=== PATIENT | female | born 1955 | race Caucasian/White ===

== ENCOUNTER 2016-12-09 23:38 | Emergency (ER) | payer OTHER ==
[2016-12-09] MEDS ORDERED: TORAdol 30 mg Injection IM ONE (23:57)
[2016-12-09] MEDS ORDERED: Vistaril 50 MG/ML IM ONE (23:58)
[2016-12-10] MEDS ORDERED: TORAdol 30 mg Injection ONE (00:01)
[2016-12-10] MEDS ORDERED: Vistaril 50 MG/ML IM ONE (00:01)
--- NOTE | 2016-12-10 00:05 | ERPHSYRPT ---
- History of Present Illness Time Seen by Provider: 12/09/16 23:39 Source: patient, family Patient Subjective Stated Complaint: PT STTES SHE HAD CARPAL TUNNEL SURGERY 1 WEEK AND SHES HAD SWELLING AND NUMBNESS IN HER FINGERS Triage Nursing Assessment: PT ALERT AND ORIENTED. ANSWERS QUESTIONS APPROP. PT AMBULATORY WITH STEADY GAIT NOTED. RESPIRATIONS NONLABORED WITH LUNGS CTA. SKIN PINK WARM AND DRY. INCISION WITH SUTURES NOTED TO RT HAND, RT ELBOW. INCISION WITH STERI STRIPS TO RT ANTERIOR NECK. SWELLING NOTED TO RT HAND AND FINGERS. CAP REFILL WNL. RT HAND WARM. RADIAL PULSE STRONG. Physician History: CC: right hand pain Hx: 60 y/o patient had anterior cervical fusion, right ulnar release at elbow, and right carpal tunnel release per Dr Lyle in [place] 1 1/2 weeks ago. All week she has had more pain in right hand. Started with ring finger, then to middle finger, then to index finger. Some swelling in fingers. Not cold or blue. No other arm swelling. She has used ice and elevation without relief. She last used norco 2-3 hours ago. Has not been able to sleep. Corresponded with doctor's office thru email this week. No fever or chills. No unusual numbness or weakness. Allergies/Adverse Reactions: Sulfa (Sulfonamide Antibiotics) Allergy (Unknown, Verified 12/09/16 23:54) Home Medications: Citalopram Hydrobromide [Celexa] 20 mg PO DAILY 12/09/16 [History] Diazepam 5 mg [Valium 5 MG] 5 mg PO Q6HPRN PRN 12/09/16 [History] Hydrocodone Bit/Acetaminophen [[place] 10-325 Tablet] 1 each PO Q4-6HPRN PRN 12/09 [History] Omeprazole 20 MG [Prilosec 20 mg] 20 mg PO DAILY 12/09/16 [History] Hx Tetanus, Diphtheria Vaccination/Date Given: No Hx Influenza Vaccination/Date Given: Yes Hx Pneumococcal Vaccination/Date Given: No Immunizations Up to Date: Yes - Review of Systems Constitutional: No Fever, No Chills Eyes: No Symptoms Respiratory: No Dyspnea Cardiac: No Chest Pain Abdominal/Gastrointestinal: No Abdominal Pain Musculoskeletal: No Injury Neurological: No Focal Weakness, No Headache, No Parasthesia - Past Medical History Pertinent Past Medical History: Yes Neurological History: Migraines ENT History: No Pertinent History Cardiac History: No Pertinent History Respiratory History: No Pertinent History Endocrine Medical History: No Pertinent History Musculoskeletal History: Degenerative Disk Disease GI Medical History: Hernia, Other History: No Pertinent History Psycho-Social History: Anxiety Female Reproductive Disorders: No Pertinent History Other Medical History: SEASONAL ALLERGIES. GASTRITIS. HIATAL HERNIA - Past Surgical History Past Surgical History: Yes Neuro Surgical History: No Pertinent History Cardiac: No Pertinent History Respiratory: No Pertinent History Gastrointestinal: No Pertinent History Genitourinary: No Pertinent History Musculoskeletal: No Pertinent History Female Surgical History: Dilation & Curettage, Tubal Ligation Other Surgical History: TONSILECTOMY. RECENT CARPAL TUNNEL, CUBITAL TUNNEL, AND ACF OF C6-6 - Social History Smoking Status: Current every day smoker How long have you smoked: 30 yr Exposure to second hand smoke: No Drug Use: none Patient Lives Alone: No - Female History Hx Last Menstrual Period: POST Hx Now: No - Nursing Vital Signs Nursing Vital Signs: Initial Vital Signs Temperature 98.7 F Temperature Source Oral Pulse Rate 105 Respiratory Rate 20 Blood Pressure [Left Arm] 128/92 Pain Intensity 9 - Physical Exam General Appearance: alert Eyes, Ears, Nose, Throat Exam: moist mucous membranes Neck Exam: other (right anterior neck steri strips, no swelling) Cardiovascular/Respiratory Exam: normal breath sounds, regular rate/rhythm Neuro/Tendon Exam: normal sensation, normal motor functions Mental Status Exam: alert, oriented x 3, cooperative Skin Exam: warm, dry SpO2 Interpretation: normal SpO2: 95 Oxygen Delivery: Room Air Comments: No edema or tenderness in right upper arm or forearm area. Right elbow area incision c,d,i. The right carpal tunnel incision is intact without drng or erythema. There is some scab. The fingers of the right hand have mild swelling. Excellent cap refill with equal pulse ox of 95% on each finger with good waveform. Good radial and ulnar pulses. ROM intact. The hand is not cool or discolored. - Course Nursing assessment & vital signs reviewed: Yes Ordered Tests: Medication Summary Generic Name Dose Route Start Last Admin Trade Name Freq PRN Reason Stop Dose Admin Hydroxyzine HCl 50 mg 12/09/16 23:58 Vistaril 50 Mg/Ml IM 12/09/16 23:59 STAT ONE Ketorolac Tromethamine 60 mg 12/09/16 23:57 Toradol 30 Mg Injection IM 12/09/16 23:58 STAT ONE - Progress Progress Note: 12/10/16 00:05 There is no sign of infection or arterial or venous thrombotic event. Advised continue elevation, limit ice, injection or vistaril and toradol, and to contact surgeon in AM for visit Tuesday. Will release with instr. Counseled pt/family regarding: diagnosis, need for follow-up - Departure Time of Disposition: 00:06 Departure Disposition: Home Clinical Impression: right hand pain post carpal tunnel OR Condition: Stable Critical Care Time: No Referrals: OZZY CARBAJAL MD [Primary Care Provider] - Instructions: Carpal Tunnel Release Additional Instructions: Elevate hand on pillows. Limit ice to just 15 minutes an hour or less. No driving tonite. Contact Dr Jarvis this AM to be seen Tuesday for check. Return for problems or concerns.
[2016-12-10 00:31] VITALS: BP 135/83; PULSE 89; O2SAT 98
== END 2016-12-10 00:31 | disposition home or self-care (01) ==
LOC: ED 23:38
DX: M79.641 Pain in right hand (principal); Z98.890 Other specified postprocedural states
CPT/HCPCS: 96372; 99284; J1885; J3410

== ENCOUNTER 2019-01-24 16:14 | Emergency (ER) | payer OTHER ==
--- NOTE | 2019-01-24 16:16 | ERPHSYRPT ---
- History of Present Illness Time Seen by Provider: 01/24/19 16:16 Historian: patient Exam Limitations: no limitations Physician History: 63 y/o white female presents with 2 month h/o intermittent cp. pt has been dx with gerd. was placed on protonix and prilosec. cp continues intermittently. cp in substernal, burning and nonradiating. pt underwent a stress test recently and was ok per pt report. Timing/Duration: week(s) (8) Activities at Onset: none Quality: burning, sharpness Location: substernal Chest Pain Radiation: no radiation Severity of Pain-Max: moderate Severity of Pain-Current: mild Modifying Factors: Improves With: antacids Associated Symptoms: heartburn, No nausea, No vomiting, No palpitations, No abdominal pain, No weakness Prior Chest Pain/Cardiac Workup: stress test Nitro Today/Relief: no nitro taken today Aspirin Treatment Today: no aspirin today Allergies/Adverse Reactions: Sulfa (Sulfonamide Antibiotics) Allergy (Unknown, Verified 01/24/19 16:30) Home Medications: Citalopram Hydrobromide [Celexa] 10 mg PO DAILY 12/09/16 [History] Hydrocodone Bit/Acetaminophen [[place] 10-325 Tablet] 1 each PO Q4-6HPRN PRN 12/09 [History] Amitriptyline HCl 25 mg PO HS 01/24/19 [History] Mirabegron [Myrbetriq] 50 mg PO DAILY 01/24/19 [History] Montelukast Sodium 10 mg [Singulair 10 MG] 10 mg PO DAILY 01/24/19 [History] PANTOPRAZOLE 40 mg Tablet [Protonix 40MG Tablet] 40 mg PO QAM 01/24/19 [ History] Trazodone HCl [Desyrel] 100 mg PO HS 01/24/19 [History] Hx Tetanus, Diphtheria Vaccination/Date Given: No Hx Influenza Vaccination/Date Given: Yes Hx Pneumococcal Vaccination/Date Given: No - Review of Systems Constitutional: No Symptoms Eyes: No Symptoms Ears, Nose, & Throat: No Symptoms Respiratory: No Symptoms Cardiac: Chest Pain, No Palpitations, No Syncope Abdominal/Gastrointestinal: No Symptoms, No Abdominal Pain, No Nausea, No Vomiting, No Diarrhea Genitourinary Symptoms: No Symptoms Musculoskeletal: No Symptoms Skin: No Symptoms Neurological: No Symptoms Psychological: No Symptoms Endocrine: No Symptoms Hematologic/Lymphatic: No Symptoms Immunological/Allergic: No Symptoms All Other Systems: Reviewed and Negative - Past Medical History Pertinent Past Medical History: Yes Neurological History: Migraines ENT History: No Pertinent History Cardiac History: No Pertinent History Respiratory History: No Pertinent History Endocrine Medical History: No Pertinent History Musculoskeletal History: Degenerative Disk Disease GI Medical History: Hernia, Other History: No Pertinent History Psycho-Social History: Anxiety Female Reproductive Disorders: No Pertinent History Other Medical History: SEASONAL ALLERGIES. GASTRITIS. HIATAL HERNIA - Past Surgical History Past Surgical History: Yes Neuro Surgical History: No Pertinent History Cardiac: No Pertinent History Respiratory: No Pertinent History Gastrointestinal: No Pertinent History Genitourinary: No Pertinent History Musculoskeletal: No Pertinent History Female Surgical History: Dilation & Curettage, Tubal Ligation Other Surgical History: TONSILECTOMY. RECENT CARPAL TUNNEL, CUBITAL TUNNEL, AND ACF OF C6-6 - Social History Smoking Status: Current every day smoker How long have you smoked: 30 yr Exposure to second hand smoke: No Drug Use: none Patient Lives Alone: No - Nursing Vital Signs Nursing Vital Signs: Initial Vital Signs Temperature 98.5 F 01/24/19 16:15 Pulse Rate 79 01/24/19 16:15 Blood Pressure 132/81 01/24/19 16:15 O2 Sat by Pulse Oximetry 94 L 01/24/19 16:15 Pain Scale Pain Intensity 7 - Physical Exam General Appearance: mild distress, alert, anxiety Eye Exam: PERRL/EOMI Ears, Nose, Throat Exam: normal ENT inspection, moist mucous membranes Neck Exam: normal inspection, non-tender, supple, full range of motion Respiratory Exam: normal breath sounds, chest tenderness, lungs clear, airway intact, No respiratory distress Cardiovascular Exam: regular rate/rhythm, normal heart sounds, normal peripheral pulses Gastrointestinal/Abdomen Exam: soft, normal bowel sounds, No tenderness, No guarding, No rebound Pelvic Exam: not done Rectal Exam: not done Extremity Exam: normal inspection, normal range of motion, No pelvis stable Neurologic Exam: alert, oriented x 3, cooperative, 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 Skin Exam: normal color, warm, dry Lymphatic Exam: No adenopathy SpO2 Interpretation: normal O2 Delivery: Room Air - Course Nursing assessment & vital signs reviewed: Yes EKG Interpreted by Me: RATE (81), Sinus Rhythm, NORMAL AXIS, NORMAL INTERVALS, NORMAL QRS, NORMAL ST-T, Other (no changes from comparison ekg dated 05/25/12) Ordered Tests: Active Orders 24 hr Category Date Time Status Administrative Technician STAT Care 01/24/19 16:45 Active EKG-ER Only STAT Care 01/24/19 16:44 Active IV Insertion STAT Care 01/24/19 16:44 Active CHEST 1 VIEW (PORTABLE) Stat Exams 01/24/19 16:44 Completed CBC W DIFF Stat Lab 01/24/19 16:25 Completed CMP Stat Lab 01/24/19 16:25 Completed D-DIMER QUANTITATION Stat Lab 01/24/19 16:25 Completed NT PRO BNP Stat Lab 01/24/19 16:25 Completed TROPONIN Q3H Lab 01/24/19 16:25 Completed TROPONIN Q3H Lab 01/24/19 19:45 Ordered TROPONIN Q3H Lab 01/24/19 22:45 Ordered TROPONIN Q3H Lab 01/25/19 01:45 Ordered TROPONIN Q3H Lab 01/25/19 04:45 Ordered Medication Summary Generic Name Dose Route Start Last Admin Trade Name Freq PRN Reason Stop Dose Admin Sodium Chloride 1,000 mls @ 100 mls/hr 01/24/19 16:45 01/24/19 16:58 Sodium Chloride 0.9% 1000 Ml IV 02/23/19 16:44 100 mls/hr .Q10H [place] Administration Discontinued Medications Generic Name Dose Route Start Last Admin Trade Name Freq PRN Reason Stop Dose Admin Al Hydrox/Mg Hydrox/Simethicone Confirm 01/24/19 16:54 Maalox Es 30 Ml Unit Dose Administered 01/24/19 16:55 Dose 30 ml .ROUTE .STK-MED ONE Aspirin 324 mg 01/24/19 16:44 01/24/19 16:56 Baby Aspirin 81 Mg Chew PO 01/24/19 16:45 324 mg STAT ONE Administration Aspirin Confirm 01/24/19 16:53 Baby Aspirin 81 Mg Chew Administered 01/24/19 16:54 Dose 324 mg .ROUTE .STK-MED ONE Lidocaine HCl Confirm 01/24/19 16:54 Xylocaine Hcl Viscous * Administered 01/24/19 16:55 Dose 1 ml .ROUTE .STK-MED ONE Magnesium Hydroxide 45 ml 01/24/19 16:45 01/24/19 16:58 Gi Cocktail 45 Ml (Maalox/Lidocaine) PO 01/24/19 16:46 45 ml STAT ONE Administration Morphine Sulfate 2 mg 01/24/19 16:44 01/24/19 16:58 Morphine Sulfate 2 Mg Inj IV 01/24/19 16:45 2 mg STAT ONE Administration Morphine Sulfate Confirm 01/24/19 16:54 Morphine Sulfate 2 Mg Inj Administered 01/24/19 16:55 Dose 2 mg .ROUTE .STK-MED ONE Promethazine HCl 12.5 mg 01/24/19 17:04 01/24/19 17:05 Phenergan 25 Mg Inj IM 01/24/19 17:05 12.5 mg STAT ONE Administration Promethazine HCl Confirm 01/24/19 17:04 Phenergan 25 Mg Inj Administered 01/24/19 17:05 Dose 25 mg .ROUTE .STK-MED ONE Lab/Rad Data: Laboratory Result Diagrams 01/24/19 16:25 01/24/19 16:25 Laboratory Results 01/24/19 01/24/19 01/24/19 Range/Units 16:25 16:25 16:25 WBC (4.0-10.5) K/mm3 RBC (4.1-5.4) M/mm3 Hgb (12.0-16.0) gm/dl Hct (35-47) % MCV (78-100) fl MCH (26-32) pg MCHC (32-36) g/dl RDW (11.5-14.0) % Plt Count (150-450) K/mm3 MPV (6-9.5) fl Gran % (36.0-66.0) % Eos # (Auto) (0-0.5) Absolute Lymphs (auto) (1.0-4.6) Absolute Monos (auto) (0.0-1.3) Lymphocytes % (24.0-44.0) % Monocytes % (0.0-12.0) % Eosinophils % (0.00-5.0) % Basophils % (0.0-0.4) % Absolute Granulocytes (1.4-6.9) Basophils # (0-0.4) D-Dimer 302 (215-500) ng/mL Sodium 141 (137-145) mmol/L Potassium 3.8 (3.5-5.1) mmol/L Chloride 105 (98-107) mmol/L Carbon Dioxide 27 (22-30) mmol/L Anion Gap 12.7 (5-15) MEQ/L BUN 17 (7-17) mg/dL Creatinine 0.82 (0.52-1.04) mg/dL Estimated GFR > 60.0 ML/MIN Glucose 108 H (74-106) mg/dL Calcium 9.1 (8.4-10.2) mg/dL Total Bilirubin 0.30 (0.2-1.3) mg/dL AST 20 (14-36) U/L ALT 21 (0-35) U/L Alkaline Phosphatase 69 (38-126) U/L Troponin I < 0.012 (0.000-0.034) ng/mL NT-Pro-B Natriuret Pep 105 (0-900) pg/mL Serum Total Protein 7.3 (6.3-8.2) g/dL Albumin 4.1 (3.5-5.0) g/dL 01/24/19 Range/Units 16:25 WBC 6.2 (4.0-10.5) K/mm3 RBC 4.86 (4.1-5.4) M/mm3 Hgb 14.8 (12.0-16.0) gm/dl Hct 44.2 (35-47) % MCV 90.9 (78-100) fl MCH 30.5 (26-32) pg MCHC 33.5 (32-36) g/dl RDW 13.2 (11.5-14.0) % Plt Count 254 (150-450) K/mm3 MPV 10.8 H (6-9.5) fl Gran % 48.0 (36.0-66.0) % Eos # (Auto) 0.11 (0-0.5) Absolute Lymphs (auto) 2.61 (1.0-4.6) Absolute Monos (auto) 0.47 (0.0-1.3) Lymphocytes % 42.1 (24.0-44.0) % Monocytes % 7.6 (0.0-12.0) % Eosinophils % 1.8 (0.00-5.0) % Basophils % 0.5 (0.0-0.4) % Absolute Granulocytes 2.98 (1.4-6.9) Basophils # 0.03 (0-0.4) D-Dimer (215-500) ng/mL Sodium (137-145) mmol/L Potassium (3.5-5.1) mmol/L Chloride (98-107) mmol/L Carbon Dioxide (22-30) mmol/L Anion Gap (5-15) MEQ/L BUN (7-17) mg/dL Creatinine (0.52-1.04) mg/dL Estimated GFR ML/MIN Glucose (74-106) mg/dL Calcium (8.4-10.2) mg/dL Total Bilirubin (0.2-1.3) mg/dL AST (14-36) U/L ALT (0-35) U/L Alkaline Phosphatase (38-126) U/L Troponin I (0.000-0.034) ng/mL NT-Pro-B Natriuret Pep (0-900) pg/mL Serum Total Protein (6.3-8.2) g/dL Albumin (3.5-5.0) g/dL - Progress Progress: improved Air Movement: good Blood Culture(s) Obtained: No Antibiotics given: No Counseled pt/family regarding: lab results, diagnosis, need for follow-up, rad results - Departure Departure Disposition: Home Clinical Impression: Chest pain Condition: Stable Critical Care Time: No Referrals: OZZY CARBAJAL MD [Primary Care Provider] - Additional Instructions: take all your medications as prescribed. follow up with primary doctor tomorrow for further management
[2019-01-24 16:30] VITALS: O2SAT 94
[2019-01-24 16:51] LABS: BASOPHIL % 0.5 % (0.0-0.4); Basophil (Absolute #) 0.03 (0-0.4); Eosinophil % 1.8 % (0.00-5.0); Eosinophil (Absolute #) 0.11 (0-0.5); Granulocyte Absolute (ANC) 2.98 (1.4-6.9); Hematocrit 44.2 % (35-47); Hemoglobin 14.8 gm/dl (12.0-16.0); Lymphocyte (Absolute #) 2.61 (1.0-4.6); Lymphocytes % 42.1 % (24.0-44.0); Mean Cell Volume 90.9 fl (78-100); Mean Corpuscular Hemoglobin 30.5 pg (26-32); Mean Corpuscular Hgb Concent. 33.5 g/dl (32-36); Mean Platelet Volume 10.8 fl (6-9.5); Monocyte (Absolute #) 0.47 (0.0-1.3); Monocytes % 7.6 % (0.0-12.0); Platelet Count 254 K/mm3 (150-450); Red Blood Count 4.86 M/mm3 (4.1-5.4); Red Cell Distribution Width 13.2 % (11.5-14.0); White Blood Count 6.2 K/mm3 (4.0-10.5)
[2019-01-24] MEDS ORDERED: BABY ASPIRIN 81 MG CHEW ONE (16:53)
[2019-01-24] MEDS ORDERED: Sodium Chloride 0.9% 1000 ML 1,000 ML ONE (16:54)
[2019-01-24] MEDS ORDERED: MAALOX ES 30 ML UNIT DOSE ONE (16:54)
[2019-01-24] MEDS ORDERED: MORPHINE SULFATE 2 MG INJ ONE (16:54)
[2019-01-24] MEDS ORDERED: XYLOCAINE HCl Viscous ONE (16:54)
[2019-01-24] MEDS: BABY ASPIRIN 81 MG CHEW PO ONE (16:56)
[2019-01-24] MEDS: Sodium Chloride 0.9% 1000 ML 1,000 ML IV SCH (16:58)
[2019-01-24] MEDS: GI COCKTAIL 45 ML (Maalox/Lidocaine) PO ONE (16:58)
[2019-01-24] MEDS: MORPHINE SULFATE 2 MG INJ IV ONE (16:58)
--- NOTE | 2019-01-24 17:03 | XRAY ---
Indication: Chest pain. Comparison: August 16, 2016. Portable chest again demonstrates normal heart and lungs. Bony thorax intact with new lower cervical fusion hardware.
[2019-01-24] MEDS ORDERED: Phenergan 25 MG INJ ONE (17:04)
[2019-01-24] MEDS: Phenergan 25 MG INJ IM ONE (17:05)
[2019-01-24 17:06] LABS: ALBUMIN 4.1 g/dL (3.5-5.0); ALKALINE PHOSPHATASE 69 U/L (38-126); ANION GAP 12.7 MEQ/L (5-15); BLOOD UREA NITROGEN 17 mg/dL (7-17); CHLORIDE 105 mmol/L (98-107); Calcium 9.1 mg/dL (8.4-10.2); Carbon Dioxide 27 mmol/L (22-30); Creatinine 1 0.82 mg/dL (0.52-1.04); Glucose 108 mg/dL (74-106); NT PRO BNP 105 pg/mL (0-900); Potassium 3.8 mmol/L (3.5-5.1); SGOT/AST 20 U/L (14-36); SGPT/ALT 21 U/L (0-35); SODIUM 141 mmol/L (137-145); Total Protein 7.3 g/dL (6.3-8.2)
[2019-01-24 17:54] VITALS: PULSE 77
[2019-01-24] MEDS ORDERED: MORPHINE SULFATE 4 MG INJ ONE (18:07)
[2019-01-24] MEDS: MORPHINE SULFATE 4 MG INJ IV ONE (18:12)
[2019-01-24 18:41] VITALS: BP 122/65
== END 2019-01-24 18:50 | disposition home or self-care (01) ==
LOC: ED 16:14
DX: R07.9 Chest pain, unspecified (principal)
CPT/HCPCS: 36415; 71045; 80053; 83880; 84484; 85025; 85379; 93005; 93041; 96360; 96372; 96374; 96375; 96376; 99284; J2270; J2550; A9270-GY

== ENCOUNTER 2020-02-04 05:49 | Emergency (ER) | payer OTHER ==
--- NOTE | 2020-02-04 06:29 | ERPHSYRPT ---
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 Triage Nursing Assessment: Patient is ambulatory with some pain, alert and oriented, compliaining of pain at a 10/10 in her left knee with movement and 8/ 10 while stationary. Method of Injury: unknown Occurred: this morning Quality: aching Severity of Pain-Max: moderate Severity of Pain-Current: moderate Lower Extremities Pain: knee: left (effusion, pain) Modifying Factors: Improves With: nothing Associated Symptoms: popping sensation Hx Tetanus, Diphtheria Vaccination/Date Given: Yes Hx Influenza Vaccination/Date Given: Yes Hx Pneumococcal Vaccination/Date Given: No Immunizations Up to Date: Yes <LOPEZ SCOTT - Last Filed: 02/04/20 06:33> <FLEX VILLASENOR - Last Filed: 02/04/20 09:14> - History of Present Illness Time Seen by Provider: 02/04/20 06:10 Physician History: Sitting in chair pain behind L knee then with walking severe pain and swelling of entire leg. Later right foot stuck to floor causing increased pressure on L mknee. Increased pain w flexion/extesion. Chronic pain in L knee on and off. ( LOPEZ SCOTT) Allergies/Adverse Reactions: Sulfa (Sulfonamide Antibiotics) Allergy (Unknown, Verified 01/24/19 16:30) Home Medications: Citalopram Hydrobromide [Celexa] 40 mg PO DAILY 12/09/16 [History] Hydrocodone Bit/Acetaminophen [[place] 10-325 Tablet] 10 mg PO Q4-6HPRN PRN [History] Amitriptyline HCl 10 mg PO HS 01/24/19 [History] Mirabegron [Myrbetriq] 50 mg PO DAILY 01/24/19 [History] Montelukast Sodium 10 mg [Singulair 10 MG] 10 mg PO DAILY 01/24/19 [History] PANTOPRAZOLE 40 mg Tablet [Protonix 40MG Tablet] 40 mg PO QAM 01/24/19 [ History] Trazodone HCl [Desyrel] 50 mg PO HS 01/24/19 [History] Travel Risk - International Travel Have you traveled outside of the country in past 3 weeks: No Have you or anyone close to you been diagnosed with or: No Do your reside in a community with a known COVID-19 case?: Yes If Yes where:: [place] - Coronavirus Screening Has patient experienced Coronavirus symptoms: No <TYLERLOPEZ - Last Filed: 02/04/20 06:33> - Review of Systems Constitutional: No Fever, No Chills Eyes: No Symptoms Ears, Nose, & Throat: No Symptoms Respiratory: No Cough, No Dyspnea Cardiac: No Chest Pain, No Edema, No Syncope Abdominal/Gastrointestinal: No Abdominal Pain, No Nausea, No Vomiting, No Diarrhea Genitourinary Symptoms: No Dysuria Musculoskeletal: Arthralgias, Joint Pain, Joint Swelling, No Back Pain, No Neck Pain Skin: No Rash Neurological: No Dizziness, No Focal Weakness, No Sensory Changes Psychological: No Symptoms Endocrine: No Symptoms All Other Systems: Reviewed and Negative <TYLERLOPEZ - Last Filed: 02/04/20 06:33> - Past Medical History Pertinent Past Medical History: Yes Neurological History: Migraines ENT History: No Pertinent History Cardiac History: No Pertinent History Respiratory History: No Pertinent History Endocrine Medical History: No Pertinent History Musculoskeletal History: Degenerative Disk Disease, Fibromyalgia GI Medical History: Hernia, Other History: No Pertinent History Psycho-Social History: Anxiety Female Reproductive Disorders: No Pertinent History Other Medical History: SEASONAL ALLERGIES. GASTRITIS. HIATAL HERNIA - Past Surgical History Past Surgical History: Yes Neuro Surgical History: No Pertinent History Cardiac: No Pertinent History Respiratory: No Pertinent History Gastrointestinal: No Pertinent History Genitourinary: No Pertinent History Musculoskeletal: No Pertinent History Female Surgical History: Dilation & Curettage, Tubal Ligation Other Surgical History: RECENT CARPAL TUNNEL, CUBITAL TUNNEL, AND ACF OF C6-6 - Social History Smoking Status: Current every day smoker How long have you smoked: 30 yr Exposure to second hand smoke: No Drug Use: none Patient Lives Alone: Yes <JOSECOLLETTELOPEZ Thea Last Filed: 02/04/20 06:33> - Physical Exam General Appearance: mild distress, alert Eyes, Ears, Nose, Throat Exam: moist mucous membranes Neck Exam: non-tender, supple Cardiovascular/Respiratory Exam: chest non-tender, normal breath sounds, regular rate/rhythm, no respiratory distress Gastrointestinal/Abdominal Exam: non-tender, guarding Back Exam: normal inspection, No vertebral tenderness Knees Exam: left knee: joint effusion, pain, soft tissue tenderness, swelling Neuro/Tendon Exam: normal sensation, normal motor functions Mental Status Exam: alert, oriented x 3, cooperative Skin Exam: normal color, warm, dry SpO2: 95 <JOSECOLLETTELOPEZ - Last Filed: 02/04/20 06:33> - Nursing Vital Signs Nursing Vital Signs: Initial Vital Signs Temperature 98 F 02/04/20 06:00 Pulse Rate 90 02/04/20 06:00 Respiratory Rate 18 02/04/20 06:00 Blood Pressure 129/67 02/04/20 06:00 O2 Sat by Pulse Oximetry 95 02/04/20 06:00 Pain Scale Pain Intensity 8 - Course Nursing assessment & vital signs reviewed: Yes <JOSECOLLETTELOPEZ - Last Filed: 02/04/20 06:33> Ordered Tests: Active Orders 24 hr Category Date Time Status House Regular Diet Diet 02/04/20 Lunch Active LOWER EXTREMITY WO CONTRAST [CT] Stat Exams 02/04/20 06:53 Completed BMP Stat Lab 02/04/20 07:35 Completed Medication Summary Discontinued Medications Generic Name Dose Route Start Last Admin Trade Name Freq PRN Reason Stop Dose Admin Hydrocodone Bitart/Acetaminophen 1 tab 02/04/20 06:57 02/04/20 07:02 [place] 5/325 Mg PO 02/04/20 06:58 1 tab STAT ONE Administration Hydrocodone Bitart/Acetaminophen Confirm 02/04/20 06:59 [place] 5/325 Mg Administered 02/04/20 07:00 Dose 1 tab .ROUTE .STK-MED ONE Lab/Rad Data: Laboratory Result Diagrams 02/04/20 07:35 Laboratory Results 02/04/20 Range/Units 07:35 Sodium 139 (137-145) mmol/L Potassium 4.0 (3.5-5.1) mmol/L Chloride 105 (98-107) mmol/L Carbon Dioxide 28 (22-30) mmol/L Anion Gap 10.0 (5-15) MEQ/L BUN 14 (7-17) mg/dL Creatinine 0.74 (0.52-1.04) mg/dL Estimated GFR > 60.0 ML/MIN Glucose 108 H (74-106) mg/dL Calcium 8.5 (8.4-10.2) mg/dL <LOPEZ SCOTT - Last Filed: 02/04/20 06:33> - Progress Progress: improved, pain not gone completely, re-examined Counseled pt/family regarding: lab results, diagnosis, need for follow-up, rad results <FLEX VILLASENOR - Last Filed: 02/04/20 09:14> - Progress Progress Note: 02/04/20 09:11 CAT scan of the left knee reveals a thin Mathews's cyst. There is an effusion present of the left knee as well. There is no acute fracture or dislocation. ( FLEX VILLASENOR) <LOPEZ SCOTT - Last Filed: 02/04/20 06:33> - Departure Departure Disposition: Home Critical Care Time: No <FLEX VILLASENOR - Last Filed: 02/04/20 09:14> - Departure Clinical Impression: Mathews's cyst of knee, Knee effusion, left Condition: Stable Referrals: OZZY CARBAJAL MD [Primary Care Provider] - [facility]-Ortho M-F [phone] Additional Instructions: Follow-up with [facility] orthopedic clinic. Continue your hydrocodone as prescribed. Use ice pack to the area 3 times a day for the next 48 hours. Prescriptions: Prednisone 10 mg [Deltasone 10 mg] 10 mg PO TID #12 tablet
[2020-02-04] MEDS ORDERED: NORCO 5/325 MG PO ONE (06:57)
[2020-02-04] MEDS ORDERED: NORCO 5/325 MG ONE (06:59)
[2020-02-04 08:00] LABS: BLOOD UREA NITROGEN 14 mg/dL (7-17); CHLORIDE 105 mmol/L (98-107); Calcium 8.5 mg/dL (8.4-10.2); Carbon Dioxide 28 mmol/L (22-30); Creatinine 1 0.74 mg/dL (0.52-1.04); Glucose 108 mg/dL (74-106); SODIUM 139 mmol/L (137-145)
--- NOTE | 2020-02-04 09:04 | XRAY ---
Indication: Pain following fall. Multiple contiguous axial images obtained through the left knee. Two-dimensional sagittal and coronal reformatted images obtained. Comparison: None Spine of the tibial plateau demonstrates a few tiny degenerative subcortical cysts. No acute fracture, dislocation, or suspicious bony lesions. Small nonspecific effusion. Patellofemoral articulation symmetric. Small thin Mathews's cyst seen interposed between the semimembranosus and medial head of the gastrocnemius at least 6 cm in length. Remaining visualized noncontrasted soft tissues unremarkable. Impression: Tibial plateau degenerative subcortical cysts, small nonspecific effusion, and Mathews's cyst. Remaining CT left knee is negative.
[2020-02-04 10:40] VITALS: BP 116/56; PULSE 67; O2SAT 98
== END 2020-02-04 09:33 | disposition home or self-care (01) ==
LOC: ED 05:49
DX: M71.22 Synovial cyst of popliteal space [Baker], left knee (principal); M25.462 Effusion, left knee; X50.1XXA Overexertion from prolonged static or awkward postures, initial encounter; Y93.01 Activity, walking, marching and hiking; Y92.238 Other place in hospital as the place of occurrence of the external cause; Y99.0 Civilian activity done for income or pay; M79.7 Fibromyalgia; Z72.0 Tobacco use
CPT/HCPCS: 36000; 36415; 73700; 80048; 99284; A9270-GY

== ENCOUNTER 2020-03-02 18:19 | Observation (INO) | payer OTHER ==
[2020-03-02 19:23] LABS: Absolute Neutrophil Ct (ANC) 2.67 (1.4-6.9); BASOPHIL % 0.6 % (0.0-0.4); Basophil (Absolute #) 0.03 (0-0.4); Eosinophil % 3.9 % (0.00-5.0); Eosinophil (Absolute #) 0.19 (0-0.5); Hemoglobin 14.1 gm/dl (12.0-16.0); Lymphocyte (Absolute #) 1.59 (1.0-4.6); Lymphocytes % 32.5 % (24.0-44.0); Mean Cell Volume 89.9 fl (78-100); Mean Corpuscular Hemoglobin 30.2 pg (26-32); Mean Corpuscular Hgb Concent. 33.6 g/dl (32-36); Mean Platelet Volume 11.3 fl (7.5-11.0); Monocyte (Absolute #) 0.41 (0.0-1.3); Monocytes % 8.4 % (0.0-12.0); Neutrophil % 54.6 % (36.0-66.0); Platelet Count 256 K/mm3 (150-450); Red Blood Count 4.67 M/mm3 (4.1-5.4); Red Cell Distribution Width 12.5 % (11.5-14.0); White Blood Count 4.9 K/mm3 (4.0-10.5)
--- NOTE | 2020-03-02 19:31 | ERPHSYRPT ---
- History of Present Illness Time Seen by Provider: 03/02/20 18:30 Source: patient Exam Limitations: no limitations Patient Subjective Stated Complaint: Dizziness Triage Nursing Assessment: Patient ambulated back to ED and transferred self to bed. Patient A+O x3. patient's skin pink, warm and dry. Patient complains of dizziness and nausea since last tuesday that was gotten worse. Patient denies pain or discomfort. Lungs clear a/p lina. Heart tones audible. Physician History: Patient is a 64-year-old female presents to our ED with complaints of dizziness. Dizziness started last week and has been getting progressively worse. Patient was getting ready for work this evening while she was curling her hair she became acutely dizzy. Patient felt like she was going to pass out. Patient stated she had to lean up against the wall to hold herself up. Dizziness is not associated with motion of her head. Symptoms are moderate in intensity. No specific worsening improving factors. No associated head trauma. No fever. No chest pain or shortness of breath. No nausea vomiting or diaphoresis. Patient is otherwise healthy. She voices no other complaints at this time. Timing/Duration: day(s) (1 week) Severity: moderate Modifying Factors: Improves With: other Associated Symptoms: other (near syncope) Allergies/Adverse Reactions: Sulfa (Sulfonamide Antibiotics) Allergy (Unknown, Verified 03/02/20 18:31) Home Medications: Citalopram Hydrobromide [Celexa] 40 mg PO DAILY 12/09/16 [History] Hydrocodone Bit/Acetaminophen [[place] 10-325 Tablet] 10 mg PO Q4-6HPRN PRN [History] Amitriptyline HCl 10 mg PO HS 01/24/19 [History] Mirabegron [Myrbetriq] 50 mg PO DAILY 01/24/19 [History] Montelukast Sodium 10 mg [Singulair 10 MG] 10 mg PO DAILY 01/24/19 [History] PANTOPRAZOLE 40 mg Tablet [Protonix 40MG Tablet] 40 mg PO QAM 01/24/19 [ History] Trazodone HCl [Desyrel] 50 mg PO HS 01/24/19 [History] Hx Tetanus, Diphtheria Vaccination/Date Given: Yes Hx Influenza Vaccination/Date Given: Yes Hx Pneumococcal Vaccination/Date Given: No Immunizations Up to Date: Yes Travel Risk - International Travel Have you traveled outside of the country in past 3 weeks: No Have you or anyone close to you been diagnosed with or: No Do your reside in a community with a known COVID-19 case?: Yes If Yes where:: [facility] - Coronavirus Screening Has patient experienced Coronavirus symptoms: No - Review of Systems Constitutional: No Symptoms, No Fever, No Chills Eyes: No Symptoms Ears, Nose, & Throat: No Symptoms Respiratory: No Symptoms, No Cough, No Dyspnea Cardiac: No Symptoms, No Chest Pain, No Edema, No Syncope Abdominal/Gastrointestinal: No Symptoms, No Abdominal Pain, No Nausea, No Vomiting, No Diarrhea Genitourinary Symptoms: No Symptoms, No Dysuria Musculoskeletal: No Symptoms, No Back Pain, No Neck Pain Skin: No Symptoms, No Rash Neurological: No Symptoms, No Dizziness, No Focal Weakness, No Sensory Changes Psychological: No Symptoms Endocrine: No Symptoms Hematologic/Lymphatic: No Symptoms Immunological/Allergic: No Symptoms All Other Systems: Reviewed and Negative - Past Medical History Pertinent Past Medical History: Yes Neurological History: Migraines ENT History: No Pertinent History Cardiac History: No Pertinent History Respiratory History: No Pertinent History Endocrine Medical History: No Pertinent History Musculoskeletal History: Degenerative Disk Disease, Fibromyalgia GI Medical History: Hernia, Other History: No Pertinent History Psycho-Social History: Anxiety Female Reproductive Disorders: No Pertinent History Other Medical History: SEASONAL ALLERGIES. GASTRITIS. HIATAL HERNIA - Past Surgical History Past Surgical History: Yes Neuro Surgical History: No Pertinent History Cardiac: No Pertinent History Respiratory: No Pertinent History Gastrointestinal: No Pertinent History Genitourinary: No Pertinent History Musculoskeletal: No Pertinent History Female Surgical History: Dilation & Curettage, Tubal Ligation Other Surgical History: RECENT CARPAL TUNNEL, CUBITAL TUNNEL, AND ACF OF C6-6 - Social History Smoking Status: Current every day smoker How long have you smoked: 30 yr Exposure to second hand smoke: No Drug Use: none Patient Lives Alone: No - Female History Hx Now: No - Nursing Vital Signs Nursing Vital Signs: Initial Vital Signs Temperature 98.3 F 03/02/20 18:25 Pulse Rate 78 03/02/20 18:25 Respiratory Rate 18 03/02/20 18:25 Blood Pressure 147/80 03/02/20 18:25 O2 Sat by Pulse Oximetry 98 03/02/20 18:25 Pain Scale Pain Intensity 4 - Physical Exam General Appearance: no apparent distress, alert Eye Exam: PERRL/EOMI, eyes nml inspection Ears, Nose, Throat Exam: normal ENT inspection, TMs normal, pharynx normal, moist mucous membranes Neck Exam: normal inspection, non-tender, supple, full range of motion Respiratory Exam: normal breath sounds, lungs clear, No respiratory distress Cardiovascular Exam: regular rate/rhythm, normal heart sounds, normal peripheral pulses Gastrointestinal/Abdomen Exam: soft, normal bowel sounds, No tenderness, No mass Back Exam: normal inspection, normal range of motion, No CVA tenderness, No vertebral tenderness Extremity Exam: normal inspection, normal range of motion, pelvis stable Neurologic Exam: alert, oriented x 3, cooperative, normal mood/affect, nml cerebellar function, nml station & gait, sensation nml, No motor deficits Skin Exam: normal color, warm, dry, No rash Lymphatic Exam: No adenopathy SpO2 Interpretation: normal SpO2: 96 O2 Delivery: Room Air - Course Nursing assessment & vital signs reviewed: Yes EKG Interpreted by Me: RATE (76), Sinus Rhythm, NORMAL AXIS, NORMAL INTERVALS - Radiology Exams Chest X-ray Interpretation: Interpreted by me (Fusion no consolidation no infiltrate no pneumothorax poor inspiratory effort. Normal bony thorax. No acute findings.) - CT Exams Head CT Interpretation: Tele-radiologist Report (Intracranial abnormality CT suggestive of empty sella) Ordered Tests: Active Orders 24 hr Category Date Time Status Mash Tub Cooker STAT Care 03/02/20 18:48 Active EKG-ER Only STAT Care 03/02/20 18:46 Active IV Insertion STAT Care 03/02/20 18:46 Active Pulse Oximetry (ED) STAT Care 03/02/20 18:46 Active CHEST 1 VIEW (PORTABLE) Stat Exams 03/02/20 18:48 Taken HEAD WITHOUT CONTRAST [CT] Stat Exams 03/02/20 18:48 Taken CBC W DIFF Stat Lab 03/02/20 18:45 Completed CMP Stat Lab 03/02/20 18:45 Completed TROPONIN Q3H Lab 03/02/20 18:45 Completed TROPONIN Q3H Lab 03/02/20 22:00 Ordered TROPONIN Q3H Lab 03/03/20 01:00 Ordered TROPONIN Q3H Lab 03/03/20 04:00 Ordered TROPONIN Q3H Lab 03/03/20 07:00 Ordered Transfer Order Routine Transfer 03/02/20 Ordered Medication Summary Discontinued Medications Generic Name Dose Route Start Last Admin Trade Name Musa PRN Reason Stop Dose Admin Meclizine HCl 25 mg 03/02/20 19:35 03/02/20 19:37 Antivert 25 Mg PO 03/02/20 19:36 25 mg STAT ONE Administration Meclizine HCl Confirm 03/02/20 19:37 Antivert 25 Mg Administered 03/02/20 19:38 Dose 25 mg .ROUTE .STK-MED ONE Lab/Rad Data: Laboratory Result Diagrams 03/02/20 18:45 03/02/20 18:45 Laboratory Results 03/02/20 03/02/20 03/02/20 Range/Units 18:45 18:45 18:45 WBC 4.9 (4.0-10.5) K/mm3 RBC 4.67 (4.1-5.4) M/mm3 Hgb 14.1 (12.0-16.0) gm/dl Hct 42.0 (35-47) % MCV 89.9 (78-100) fl MCH 30.2 (26-32) pg MCHC 33.6 (32-36) g/dl RDW 12.5 (11.5-14.0) % Plt Count 256 (150-450) K/mm3 MPV 11.3 H (7.5-11.0) fl Gran % 54.6 (36.0-66.0) % Eos # (Auto) 0.19 (0-0.5) Absolute Lymphs (auto) 1.59 (1.0-4.6) Absolute Monos (auto) 0.41 (0.0-1.3) Lymphocytes % 32.5 (24.0-44.0) % Monocytes % 8.4 (0.0-12.0) % Eosinophils % 3.9 (0.00-5.0) % Basophils % 0.6 (0.0-0.4) % Absolute Granulocytes 2.67 (1.4-6.9) Basophils # 0.03 (0-0.4) Sodium 140 (137-145) mmol/L Potassium 4.1 (3.5-5.1) mmol/L Chloride 104 (98-107) mmol/L Carbon Dioxide 30 (22-30) mmol/L Anion Gap 10.5 (5-15) MEQ/L BUN 16 (7-17) mg/dL Creatinine 0.88 (0.52-1.04) mg/dL Estimated GFR > 60.0 ML/MIN Glucose 113 H (74-106) mg/dL Calcium 9.0 (8.4-10.2) mg/dL Total Bilirubin 0.40 (0.2-1.3) mg/dL AST 19 (14-36) U/L ALT 26 (0-35) U/L Alkaline Phosphatase 79 (38-126) U/L Troponin I < 0.012 (0.000-0.034) ng/mL Serum Total Protein 7.3 (6.3-8.2) g/dL Albumin 4.0 (3.5-5.0) g/dL - Progress Progress: improved Progress Note: 03/02/20 20:30 Patient reassessed. Repeat neuro exam within normal limits. Preliminary work- up essentially within normal limits. Chest x-ray shows no acute pathology. CT head was negative as well. In light of patient's age and symptomology we will admit patient for near syncope work-up and ongoing possible central dizziness. Case discussed with Dr. Curry who accepts admission to observation. Plan of care discussed with patient. She agrees to admission to [facility] for further evaluation and treatment. IV fluids administered. Aspirin administered. Discussed with : Grayson Will see patient in: hospital (observation) Counseled pt/family regarding: lab results, diagnosis, rad results - Departure Departure Disposition: Observation Clinical Impression: Dizziness, Near syncope Condition: Stable Critical Care Time: No
[2020-03-02] MEDS ORDERED: ANTIVERT 25 MG PO ONE (19:35)
[2020-03-02] MEDS ORDERED: ANTIVERT 25 MG ONE (19:37)
[2020-03-02 19:40] LABS: ALKALINE PHOSPHATASE 79 U/L (38-126); ANION GAP 10.5 MEQ/L (5-15); BLOOD UREA NITROGEN 16 mg/dL (7-17); CHLORIDE 104 mmol/L (98-107); Carbon Dioxide 30 mmol/L (22-30); Creatinine 1 0.88 mg/dL (0.52-1.04); Glucose 113 mg/dL (74-106); Potassium 4.1 mmol/L (3.5-5.1); SGOT/AST 19 U/L (14-36); SGPT/ALT 26 U/L (0-35); SODIUM 140 mmol/L (137-145); Total Protein 7.3 g/dL (6.3-8.2)
[2020-03-02] MEDS ORDERED: BABY ASPIRIN 81 MG CHEW PO ONE (20:30)
[2020-03-02] MEDS: Sodium Chloride 0.9% 1000 ML 1,000 ML IV SCH (22:20)
[2020-03-02] MEDS ORDERED: TYLENOL 325 MG PO PRN (22:48)
[2020-03-03 04:57] LABS: BASOPHIL % 0.9 % (0.0-0.4); Basophil (Absolute #) 0.05 (0-0.4); Eosinophil % 3.8 % (0.00-5.0); Eosinophil (Absolute #) 0.21 (0-0.5); Hematocrit 38.5 % (35-47); Hemoglobin 12.7 gm/dl (12.0-16.0); Lymphocyte (Absolute #) 2.02 (1.0-4.6); Lymphocytes % 36.8 % (24.0-44.0); Mean Cell Volume 91.7 fl (78-100); Mean Corpuscular Hemoglobin 30.2 pg (26-32); Mean Platelet Volume 11.2 fl (7.5-11.0); Monocyte (Absolute #) 0.51 (0.0-1.3); Monocytes % 9.3 % (0.0-12.0); Neutrophil % 49.2 % (36.0-66.0); Platelet Count 244 K/mm3 (150-450); Red Cell Distribution Width 12.6 % (11.5-14.0); White Blood Count 5.5 K/mm3 (4.0-10.5)
[2020-03-03 05:21] LABS: ALBUMIN 3.5 g/dL (3.5-5.0); ALKALINE PHOSPHATASE 65 U/L (38-126); ANION GAP 10.2 MEQ/L (5-15); BLOOD UREA NITROGEN 18 mg/dL (7-17); CHLORIDE 106 mmol/L (98-107); Calcium 8.5 mg/dL (8.4-10.2); Carbon Dioxide 28 mmol/L (22-30); Creatinine 1 0.74 mg/dL (0.52-1.04); Glucose 122 mg/dL (74-106); Potassium 3.9 mmol/L (3.5-5.1); SGOT/AST 20 U/L (14-36); SGPT/ALT 21 U/L (0-35); SODIUM 140 mmol/L (137-145); Total Protein 6.4 g/dL (6.3-8.2)
--- NOTE | 2020-03-03 07:50 | PCM.HP ---
History of Present Illness - Chief Complaint Chief Complaint: near syncope, dizziness History of Present Illness: is a 64 year old female who complains of dizziness for the last week, she describes lightheadedness and true vertigo, worse when she is up walking or when she looks up. She was preparing for work yesterday evening and curling her hair and became very dizzy and thought she would pass out so she came in for evaluation. She has had no chest pain, no shortness of breath, no cough, no fever, no vomiting or diarrhea. she had a negative head ct in ER and workup thus far has been negative. she reports improvement in her symptoms with 1 dose of meclizine in the ER but still has some symptoms when she gets up out of bed. - Review of Systems Constitutional: No Fever, No Chills Respiratory: No Cough, No Short Of Breath Cardiac: No Chest Pain, No Edema, No Syncope Abdominal/Gastrointestinal: No Abdominal Pain, No Nausea, No Vomiting, No Diarrhea Neurological: Dizziness, No Focal Weakness, No Gait Changes, No Headache Psychological: No Symptoms All Other Systems: Reviewed and Negative Medications & Allergies Home Medications: Home Medication List Citalopram Hydrobromide [Celexa] 40 mg PO DAILY 12/09/16 [History Confirmed 04/14] Hydrocodone Bit/Acetaminophen [[place] 10-325 Tablet] 10 mg PO Q4-6HPRN PRN [History Confirmed 03/02/20] Amitriptyline HCl 10 mg PO HS 01/24/19 [History Confirmed 03/02/20] Mirabegron [Myrbetriq] 50 mg PO DAILY 01/24/19 [History Confirmed 03/02/20] Montelukast Sodium 10 mg [Singulair 10 MG] 10 mg PO DAILY 01/24/19 [History Confirmed 03/02/20] PANTOPRAZOLE 40 mg Tablet [Protonix 40MG Tablet] 40 mg PO QAM 01/24/19 [ History Confirmed 03/02/20] Trazodone HCl [Desyrel] 50 mg PO HS 01/24/19 [History Confirmed 03/02/20] Allergies/Adverse Reactions: Allergies Allergy/AdvReac Type Severity Reaction Status Date / Time Sulfa (Sulfonamide Allergy Unknown Verified 03/02/20 21:42 Antibiotics) - Past Medical History Past Medical History: Yes Neurological History: Migraines ENT History: No Pertinent History Cardiac History: No Pertinent History Respiratory History: No Pertinent History Endocrine Medical History: No Pertinent History Musculoskelatal History: Degenerative Disk Disease, Fibromyalgia GI Medical History: Hernia, Other History: No Pertinent History Pyscho-Social History: Anxiety Reproductive Disorders: No Pertinent History Comment: SEASONAL ALLERGIES. GASTRITIS. HIATAL HERNIA - Female History Are you now?: No - Past Surgical History Past Surgical History: Yes Neuro Surgical History: No Pertinent History Cardiac History: No Pertinent History Respiratory Surgery: No Pertinent History GI Surgical History: No Pertinent History Genitourinary Surgical Hx: No Pertinent History Musculskeletal Surgical Hx: No Pertinent History Female Surgical History: Dilation & Curettage, Tubal Ligation Other Surgical History: RECENT CARPAL TUNNEL, CUBITAL TUNNEL, AND ACF OF C6-6 - Social History Smoking Status: Current every day smoker How long have you smoked: 30 yr Exposure to second hand smoke: Yes Alcohol: None Drug Use: none - Physical Exam Vital Signs: Vital Signs - 24 hr Temp Pulse Resp BP Pulse Ox 03/03/20 06:50 93 L 03/03/20 04:04 98.2 F 75 16 116/68 93 L 03/03/20 01:02 96 03/02/20 21:43 98.7 F 79 18 120/58 95 03/02/20 21:31 95 03/02/20 21:09 74 20 130/56 94 L 03/02/20 20:32 96 03/02/20 20:10 68 18 116/75 92 L 03/02/20 19:24 71 18 125/73 92 L 03/02/20 18:57 96 03/02/20 18:25 98.3 F 78 18 147/80 98 General Appearance: no apparent distress, other (sitting up in bed on her laptop ) Neurologic Exam: alert, oriented x 3, cooperative, food manager II-XII nml as tested, normal mood/affect, No motor deficits, No sensory deficit, No slurred speech, No dysarthria Eye Exam: PERRL/EOMI, eyes nml inspection Neck Exam: normal inspection, non-tender, supple, full range of motion Respiratory Exam: normal breath sounds, lungs clear, No respiratory distress Cardiovascular Exam: regular rate/rhythm, normal heart sounds, normal peripheral pulses Gastrointestinal/Abdomen Exam: soft, normal bowel sounds, No tenderness, No mass Extremity Exam: normal inspection, normal range of motion, pelvis stable Skin Exam: normal color, warm, dry, No rash Results - Labs Lab/Micro Results: Lab Results-Last 24 Hours 03/02/20 03/02/20 03/02/20 Range/Units 18:45 18:45 18:45 WBC 4.9 (4.0-10.5) K/mm3 RBC 4.67 (4.1-5.4) M/mm3 Hgb 14.1 (12.0-16.0) gm/dl Hct 42.0 (35-47) % MCV 89.9 (78-100) fl MCH 30.2 (26-32) pg MCHC 33.6 (32-36) g/dl RDW 12.5 (11.5-14.0) % Plt Count 256 (150-450) K/mm3 MPV 11.3 H (7.5-11.0) fl Gran % 54.6 (36.0-66.0) % Eos # (Auto) 0.19 (0-0.5) Absolute Lymphs (auto) 1.59 (1.0-4.6) Absolute Monos (auto) 0.41 (0.0-1.3) Lymphocytes % 32.5 (24.0-44.0) % Monocytes % 8.4 (0.0-12.0) % Eosinophils % 3.9 (0.00-5.0) % Basophils % 0.6 (0.0-0.4) % Absolute Granulocytes 2.67 (1.4-6.9) Basophils # 0.03 (0-0.4) Sodium 140 (137-145) mmol/L Potassium 4.1 (3.5-5.1) mmol/L Chloride 104 (98-107) mmol/L Carbon Dioxide 30 (22-30) mmol/L Anion Gap 10.5 (5-15) MEQ/L BUN 16 (7-17) mg/dL Creatinine 0.88 (0.52-1.04) mg/dL Estimated GFR > 60.0 ML/MIN Glucose 113 H (74-106) mg/dL Calcium 9.0 (8.4-10.2) mg/dL Total Bilirubin 0.40 (0.2-1.3) mg/dL AST 19 (14-36) U/L ALT 26 (0-35) U/L Alkaline Phosphatase 79 (38-126) U/L Troponin I < 0.012 (0.000-0.034) ng/mL Serum Total Protein 7.3 (6.3-8.2) g/dL Albumin 4.0 (3.5-5.0) g/dL 03/02/20 03/03/20 03/03/20 Range/Units 22:45 01:20 04:30 WBC (4.0-10.5) K/mm3 RBC (4.1-5.4) M/mm3 Hgb (12.0-16.0) gm/dl Hct (35-47) % MCV (78-100) fl MCH (26-32) pg MCHC (32-36) g/dl RDW (11.5-14.0) % Plt Count (150-450) K/mm3 MPV (7.5-11.0) fl Gran % (36.0-66.0) % Eos # (Auto) (0-0.5) Absolute Lymphs (auto) (1.0-4.6) Absolute Monos (auto) (0.0-1.3) Lymphocytes % (24.0-44.0) % Monocytes % (0.0-12.0) % Eosinophils % (0.00-5.0) % Basophils % (0.0-0.4) % Absolute Granulocytes (1.4-6.9) Basophils # (0-0.4) Sodium (137-145) mmol/L Potassium (3.5-5.1) mmol/L Chloride (98-107) mmol/L Carbon Dioxide (22-30) mmol/L Anion Gap (5-15) MEQ/L BUN (7-17) mg/dL Creatinine (0.52-1.04) mg/dL Estimated GFR ML/MIN Glucose (74-106) mg/dL Calcium (8.4-10.2) mg/dL Total Bilirubin (0.2-1.3) mg/dL AST (14-36) U/L ALT (0-35) U/L Alkaline Phosphatase (38-126) U/L Troponin I < 0.012 < 0.012 < 0.012 (0.000-0.034) ng/mL Serum Total Protein (6.3-8.2) g/dL Albumin (3.5-5.0) g/dL 03/03/20 03/03/20 03/03/20 Range/Units 04:30 04:30 07:10 WBC 5.5 (4.0-10.5) K/mm3 RBC 4.20 (4.1-5.4) M/mm3 Hgb 12.7 (12.0-16.0) gm/dl Hct 38.5 (35-47) % MCV 91.7 (78-100) fl MCH 30.2 (26-32) pg MCHC 33.0 (32-36) g/dl RDW 12.6 (11.5-14.0) % Plt Count 244 (150-450) K/mm3 MPV 11.2 H (7.5-11.0) fl Gran % 49.2 (36.0-66.0) % Eos # (Auto) 0.21 (0-0.5) Absolute Lymphs (auto) 2.02 (1.0-4.6) Absolute Monos (auto) 0.51 (0.0-1.3) Lymphocytes % 36.8 (24.0-44.0) % Monocytes % 9.3 (0.0-12.0) % Eosinophils % 3.8 (0.00-5.0) % Basophils % 0.9 (0.0-0.4) % Absolute Granulocytes 2.70 (1.4-6.9) Basophils # 0.05 (0-0.4) Sodium 140 (137-145) mmol/L Potassium 3.9 (3.5-5.1) mmol/L Chloride 106 (98-107) mmol/L Carbon Dioxide 28 (22-30) mmol/L Anion Gap 10.2 (5-15) MEQ/L BUN 18 H (7-17) mg/dL Creatinine 0.74 (0.52-1.04) mg/dL Estimated GFR > 60.0 ML/MIN Glucose 122 H (74-106) mg/dL Calcium 8.5 (8.4-10.2) mg/dL Total Bilirubin 0.20 (0.2-1.3) mg/dL AST 20 (14-36) U/L ALT 21 (0-35) U/L Alkaline Phosphatase 65 (38-126) U/L Troponin I < 0.012 (0.000-0.034) ng/mL Serum Total Protein 6.4 (6.3-8.2) g/dL Albumin 3.5 (3.5-5.0) g/dL - Radiology Impressions Radiology Exams & Impressions: Radiology Procedures Category Date Time Status CHEST 1 VIEW (PORTABLE) Stat Exams 03/02/20 18:48 Taken ECHO W/2D AND DOPPLER [US] Routine Exams 03/03/20 Ordered HEAD WITHOUT CONTRAST [CT] Stat Exams 03/02/20 18:48 Taken - Other Procedures and Tests Respiratory Therapy 03/03/20 01:01 Oxygen NASAL CANNULA 2 lpm Assessment/Plan (1) Near syncope Current Visit: Yes Status: Acute Assessment & Plan: cardiac workup negative, will get echo. likely related to bppv (2) Dizziness Current Visit: Yes Status: Acute Assessment & Plan: schedule meclizine q8hrs, home when symptoms improved and able to ambulate etc. Code(s): R42 - DIZZINESS AND GIDDINESS
--- NOTE | 2020-03-03 08:57 | XRAY ---
Indication: Dizziness. Comparison: January 24, 2019. Portable apical lordotic chest less inflated crowding both lung bases. No focal infiltrate, consolidation, or large effusion. Heart is not enlarged for AP portable technique. Bony thorax intact again with mild osteopenia, degenerative changes, and lower cervical fusion. Impression: Nonacute underinflated chest.
--- NOTE | 2020-03-03 08:59 | XRAY ---
Indication: Dizziness. Multiple contiguous axial images obtained through the head without contrast. Comparison: None Age-appropriate global atrophy and minimal periventricular degenerative micro-ischemia. No acute intracranial hemorrhage, abnormal extra-axial fluid collection, or mass effect. Fourth ventricle is midline without hydrocephalus. Guillen-white matter differentiation preserved. Bony calvarium intact. Visualized paranasal sinuses and mastoid air cells are clear. Impression: Atrophy and degenerative micro-ischemia within normal limits for patient's age. No acute intracranial abnormalities. Comment: Preliminary interpretation was made by [facility]. No critical discrepancy.
[2020-03-03] MEDS ORDERED: Norco 10/325 MG Tablet PO PRN (09:05)
[2020-03-03] MEDS: ANTIVERT 25 MG PO SCH ×3 (09:07→18:45)
[2020-03-03] MEDS ORDERED: Singulair 10 MG PO SCH (10:00)
[2020-03-03] MEDS ORDERED: ELAVIL 10 MG PO SCH ×2 (10:00→22:00)
[2020-03-03] MEDS ORDERED: Protonix 40MG Tablet PO SCH (10:00)
[2020-03-03] MEDS ORDERED: ceLEXa 20 MG PO SCH (10:00)
[2020-03-03] MEDS ORDERED: MYRBETRIQ PO SCH (10:00)
[2020-03-03] MEDS: Sodium Chloride 0.9% 1000 ML 1,000 ML IV SCH (11:44)
[2020-03-03 17:15] VITALS: BP 111/67; PULSE 68; O2SAT 95
[2020-03-03] MEDS ORDERED: DESYREL 50 MG PO SCH (22:00)
[2020-03-03] MEDS ORDERED: TRAZODONE HCL 50 MG PO SCH (22:00)
[2020-03-03] MEDS ORDERED: ELAVIL 25 MG PO SCH (22:00)
--- NOTE | 2020-03-04 10:59 | ECHO ---
DATE: 03/03/2020 INDICATION: Presyncope. The M-mode, 2D, and Doppler echocardiogram including color flow Doppler shows the left ventricle is normal in size at 5.3 cm. There is no thrombus present. The septal wall thickness is 1.1 cm. The left ventricular posterior wall thickness is 1.4 cm. There is normal contractility of the left ventricle. The ejection fraction is calculated to be 65%. The right ventricle is grossly normal. The left atrium is normal at 3.1 cm. The interatrial septum is intact. The right atrium is normal. The aortic valve opens well with no aortic regurgitation being present. The mitral valve is normal. There is mild tricuspid regurgitation. The right ventricular systolic pressure is normal at 28 mm Hg. The pulmonic valve is not well visualized. The aortic root is normal at 3.2 cm. There is no pericardial effusion present. The mitral valve E:A inflow velocity is decreased at 0.8 suggestive of possible impaired left ventricular relaxation. IMPRESSION: 1. NORMAL CONTRACTILITY OF THE LEFT VENTRICLE. 2. POSSIBLE IMPAIRMENT OF LEFT VENTRICULAR RELAXATION. 3. MILD TRICUSPID REGURGITATION. 4. NORMAL RIGHT VENTRICULAR SYSTOLIC PRESSURE. 5. LIMITED STUDY DUE TO POOR LUNG WINDOWS.
== END 2020-03-03 19:07 | disposition home or self-care (01) ==
LOC: ED 18:19 → MED SURG 21:30
PROVIDERS: ADMIT Internal Medicine; ATTEND Internal Medicine
DX: R55 Syncope and collapse (principal); R42 Dizziness and giddiness; Z79.899 Other long term (current) drug therapy
CPT/HCPCS: 36000; 36415; 70450; 71045; 80053; 84484; 85025; 93005; 93041; 93268; 93306; 94760; 94762; 99285; G0378; A9270-GY

== ENCOUNTER 2020-09-15 14:33 | Emergency (ER) | payer OTHER ==
--- NOTE | 2020-09-15 15:05 | ERPHSYRPT ---
- History of Present Illness Time Seen by Provider: 09/15/20 15:10 Source: patient Physician History: Patient is a 64-year-old female presents to our ED as a referral from her primary care doctor for a ultrasound of her left lower leg. Patient states her left leg has been swollen since yesterday night. Patient states she recently had arthroscopic surgery of her left lower extremity. Patient's calf pain described as an ache that is well localized. No radiation. Pain worse with palpation. Pain improved with rest. Patient otherwise voices no other complaints at this time. No chest pain or shortness of breath. No nausea vomiting or diaphoresis. No fever. Patient declined pain medication. Timing/Duration: yesterday Severity: moderate Modifying Factors: Improves With: nothing Associated Symptoms: denies symptoms Allergies/Adverse Reactions: Sulfa (Sulfonamide Antibiotics) Allergy (Unknown, Verified 09/15/20 14:55) pt unsure of reaction, it was when she was a baby. Home Medications: Citalopram Hydrobromide [Celexa] 40 mg PO DAILY 12/09/16 [History] Hydrocodone Bit/Acetaminophen [[place] 10-325 Tablet] 10 mg PO Q4-6HPRN PRN 12/09/16 [History] Amitriptyline HCl 10 mg PO HS 01/24/19 [History] Mirabegron [Myrbetriq] 50 mg PO DAILY 01/24/19 [History] Montelukast Sodium 10 mg [Singulair 10 MG] 10 mg PO DAILY 01/24/19 [History] PANTOPRAZOLE 40 mg Tablet [Protonix 40MG Tablet] 40 mg PO QAM 01/24/19 [History] Trazodone HCl [Desyrel] 50 mg PO HS 01/24/19 [History] Hx Tetanus, Diphtheria Vaccination/Date Given: Yes Hx Influenza Vaccination/Date Given: Yes Hx Pneumococcal Vaccination/Date Given: No - Review of Systems Constitutional: No Symptoms, No Fever, No Chills Eyes: No Symptoms Ears, Nose, & Throat: No Symptoms Respiratory: No Symptoms, No Cough, No Dyspnea Cardiac: No Symptoms, No Chest Pain, No Edema, No Syncope Abdominal/Gastrointestinal: No Symptoms, No Abdominal Pain, No Nausea, No Vomiting, No Diarrhea Genitourinary Symptoms: No Symptoms, No Dysuria Musculoskeletal: No Symptoms, No Back Pain, No Neck Pain Skin: No Symptoms, No Rash Neurological: No Symptoms, No Dizziness, No Focal Weakness, No Sensory Changes Psychological: No Symptoms Endocrine: No Symptoms Hematologic/Lymphatic: No Symptoms Immunological/Allergic: No Symptoms All Other Systems: Reviewed and Negative - Past Medical History Pertinent Past Medical History: Yes Neurological History: Migraines ENT History: No Pertinent History Cardiac History: No Pertinent History Respiratory History: No Pertinent History Endocrine Medical History: No Pertinent History Musculoskeletal History: Degenerative Disk Disease, Fibromyalgia GI Medical History: Hernia, Other History: No Pertinent History Psycho-Social History: Anxiety Female Reproductive Disorders: No Pertinent History Other Medical History: SEASONAL ALLERGIES. GASTRITIS. HIATAL HERNIA - Past Surgical History Past Surgical History: Yes Neuro Surgical History: No Pertinent History Cardiac: No Pertinent History Respiratory: No Pertinent History Gastrointestinal: No Pertinent History Genitourinary: No Pertinent History Musculoskeletal: No Pertinent History Female Surgical History: Dilation & Curettage, Tubal Ligation Other Surgical History: RECENT CARPAL TUNNEL, CUBITAL TUNNEL, AND ACF OF C6-6 - Social History Smoking Status: Current every day smoker How long have you smoked: 30 yr Exposure to second hand smoke: Yes Drug Use: none Patient Lives Alone: No - Nursing Vital Signs Nursing Vital Signs: Initial Vital Signs Temperature 98.2 F 09/15/20 14:59 Pulse Rate 76 09/15/20 14:59 Respiratory Rate 19 09/15/20 14:59 Blood Pressure 151/73 09/15/20 14:59 O2 Sat by Pulse Oximetry 98 09/15/20 14:59 Pain Scale Pain Intensity 6 - Physical Exam General Appearance: no apparent distress, alert Eye Exam: PERRL/EOMI, eyes nml inspection Ears, Nose, Throat Exam: normal ENT inspection, TMs normal, pharynx normal, moist mucous membranes Neck Exam: normal inspection, non-tender, supple, full range of motion Respiratory Exam: normal breath sounds, lungs clear, No respiratory distress Cardiovascular Exam: regular rate/rhythm, normal heart sounds, normal peripheral pulses Gastrointestinal/Abdomen Exam: soft, normal bowel sounds, No tenderness, No mass Back Exam: normal inspection, normal range of motion, No CVA tenderness, No vertebral tenderness Extremity Exam: normal inspection, normal range of motion, pelvis stable Neurologic Exam: alert, oriented x 3, cooperative, normal mood/affect, nml cerebellar function, nml station & gait, sensation nml, No motor deficits Skin Exam: normal color, warm, dry, No rash Lymphatic Exam: No adenopathy SpO2 Interpretation: normal SpO2: 98 O2 Delivery: Room Air - Course Nursing assessment & vital signs reviewed: Yes - Radiology Ultrasound Exam Venous Lower Extremity Ultrasound: discussed w/radiologist (Alcoholic Counselor reports left lower extremity ultrasound negative for DVT.) Ordered Tests: Active Orders 24 hr Category Date Time Status VENOUS UNILAT/LIMITED EXTREMIT [US] Stat Exams 09/15/20 14:59 Ordered - Progress Progress: improved Progress Note: 09/15/20 15:59 Patient declined pain medication. Ultrasound negative for DVT. Patient requesting discharge. Will discharge patient home. Patient voices no other concerns or complaints at this time. Counseled pt/family regarding: diagnosis, need for follow-up, rad results - Departure Departure Disposition: Home Clinical Impression: Leg pain Condition: Stable Critical Care Time: No Referrals: OZZY CARBAJAL MD [Primary Care Provider] - Additional Instructions: Discharge/Care Plan NOAH HINOJOSA was seen on 09/15/20 in the Emergency Room. The patient was counseled regarding Diagnosis,Lab results, Imaging studies, need for follow up and when to return to the Emergency Room. Prescriptions given: Discharge Note I have spoken with the patient and/or caregivers. I have explained the patient's condition, diagnosis and treatment plan based on the information available to me at this time. I have answered the patient's and/or caregiver's questions and addressed any concerns. The patient and/or caregivers have as good understanding of the patient's diagnosis, condition and treatment plan as can be expected at this point. The vital signs have been stable. The patient's condition is stable and appropriate for discharge from the emergency department. The patient will pursue further outpatient evaluation with the primary care physician or other designated or consulting physician as outlined in the discharge instructions. The patient and/or caregivers are agreeable to this plan of care and follow-up instructions have been explained in detail. The patient and/or caregivers have received these instruction. The patient/and or caregivers are aware that any significant change in condition or worsening of symptoms should prompt an immediate return to this or the closest emergency department or call 911.
[2020-09-15 16:20] VITALS: BP 142/72; PULSE 72; O2SAT 93
--- NOTE | 2020-09-15 16:29 | XRAY ---
Indication: Left leg pain. Two-dimensional sonogram and color Doppler imaging of the major venous vessels of the left leg was performed. Comparison: None. No thrombus seen in the examined deep venous vessels of the left leg including greater saphenous vein. Veins demonstrate normal compressibility. Venous waveforms are normal with and without augmentation. Impression: Left leg negative for DVT.
== END 2020-09-15 16:21 | disposition home or self-care (01) ==
LOC: ED 14:33
DX: M79.662 Pain in left lower leg (principal)
CPT/HCPCS: 93971; 99283

== ENCOUNTER 2021-08-12 10:33 | Day surgery (SDC) | payer OTHER ==
[2012-05-25 16:51] VITALS: BP 126/64
[2021-08-12] MEDS ORDERED: LIDOCAINE HCL 2% 100 MG/5 ML IJ ONE (10:34)
[2021-08-12] MEDS ORDERED: DIPRIVAN 200 MG/20 ML IV ONE (11:41)
[2021-08-12] MEDS ORDERED: Xylocaine-Mpf 2% 5 Ml Vial ONE (11:52)
[2021-08-12] MEDS ORDERED: Lactated Ringers 1,000 ML IV ONE (12:04)
--- NOTE | 2021-08-12 14:10 | XRAY ---
Indication: Bilateral L4-S1 MBB. Intraoperative fluoroscopy provided for 8 seconds. Single digital spot image submitted for interpretation demonstrates posterior needle tips projecting over the expected left and right L4-S1 nerve roots. Correlate with intraoperative findings/report.
--- NOTE | 2021-08-12 15:17 | XRAY ---
8 seconds fluoroscopy time in surgery for bilateral L4-S1 MBB.
== END 2021-08-12 12:09 | disposition home or self-care (01) ==
LOC: SDC-PAIN 10:33
PROVIDERS: ATTEND Psychiatry & Neurology Pain Medicine
DX: M47.816 Spondylosis without myelopathy or radiculopathy, lumbar region (principal); Z79.891 Long term (current) use of opiate analgesic; Z72.0 Tobacco use
CPT/HCPCS: 64493; 64494; 72020; 77002; J2704

== ENCOUNTER 2021-11-20 07:53 | Emergency (ER) | payer OTHER, SELFPAY ==
--- NOTE | 2021-11-20 08:04 | ERPHSYRPT ---
- History of Present Illness Hx Tetanus, Diphtheria Vaccination/Date Given: Yes Hx Influenza Vaccination/Date Given: Yes Hx Pneumococcal Vaccination/Date Given: No <TEJALROMANJENNIFER - Last Filed: 11/20/21 08:04> - History of Present Illness Historian: patient Exam Limitations: no limitations Timing/Duration: today Activities at Onset: none Quality: sharpness, stabbing Abdominal Pain Onset Location: RUQ, epigastric Pain Radiation: back Severity of Pain-Max: moderate Severity of Pain-Current: moderate Modifying Factors: Improves With: eating Associated Symptoms: nausea, No chest pain, No shortness of breath Previous symptoms: same symptoms as today <FLEX VILLASENOR - Last Filed: 11/20/21 10:51> - History of Present Illness Time Seen by Provider: 11/20/21 08:04 Physician History: This is a 65-year-old obese white female patient of Dr. Gaspar and pain special ist Dr. Romero who presents with abdominal pain. She describes the abdominal pain as epigastric and right upper quadrant which radiates to her back. It is sharp and stabbing. She has associated nausea. The pain was relatively sudden onset that occurred this morning. Last evening, she had chicken mashed potatoes and corn. Patient does feel bloated and gassy. She has not had any abdominal s urgeries in the past. Patient has a history of anxiety, fibromyalgia, seasonal allergies and degenerative disc disease. She is a chronic daily smoker. She denies chest pain. She denies shortness of breath. She has had no diarrhea. (FLEX VILLASENOR) Allergies/Adverse Reactions: Sulfa (Sulfonamide Antibiotics) Allergy (Unknown, Verified 11/20/21 08:04) pt unsure of reaction, it was when she was a baby. Home Medications: Citalopram Hydrobromide [Celexa] 40 mg PO DAILY 12/09/16 [History] Hydrocodone/Acetaminophen [[place] 10-325 Tablet] 10 mg PO Q4-6HPRN PRN 12/09/16 [History] Amitriptyline HCl 10 mg PO HS 01/24/19 [History] Mirabegron [Myrbetriq] 50 mg PO DAILY 01/24/19 [History] Montelukast Sodium 10 mg [Singulair 10 MG] 10 mg PO DAILY 01/24/19 [History] PANTOPRAZOLE 40 mg Tablet [Protonix 40MG Tablet] 40 mg PO QAM 01/24/19 [History] Trazodone HCl [Desyrel] 50 mg PO HS 01/24/19 [History] Travel Risk - International Travel Have you traveled outside of the country in past 3 weeks: No - Coronavirus Screening Are you exhibiting any of the following symptoms?: No Close contact with a COVID-19 positive Pt in past 14-21 Days: No <FLEX VILLASENOR - Last Filed: 11/20/21 10:51> - Review of Systems Constitutional: No Symptoms Eyes: No Symptoms Ears, Nose, & Throat: No Symptoms Respiratory: No Symptoms Cardiac: No Symptoms Abdominal/Gastrointestinal: Abdominal Pain (Right upper quadrant and epigastric), Nausea Genitourinary Symptoms: No Symptoms Musculoskeletal: No Symptoms Skin: No Symptoms Neurological: No Symptoms Psychological: No Symptoms Endocrine: No Symptoms Hematologic/Lymphatic: No Symptoms Immunological/Allergic: No Symptoms All Other Systems: Reviewed and Negative <FLEX VILLASENOR - Last Filed: 11/20/21 10:51> - Past Medical History Pertinent Past Medical History: Yes Neurological History: Migraines ENT History: No Pertinent History Cardiac History: No Pertinent History Respiratory History: No Pertinent History Endocrine Medical History: No Pertinent History Musculoskeletal History: Degenerative Disk Disease, Fibromyalgia GI Medical History: Hernia, Other History: No Pertinent History Psycho-Social History: Anxiety Female Reproductive Disorders: No Pertinent History Other Medical History: SEASONAL ALLERGIES. GASTRITIS. HIATAL HERNIA - Past Surgical History Past Surgical History: Yes Neuro Surgical History: No Pertinent History Cardiac: No Pertinent History Respiratory: No Pertinent History Gastrointestinal: No Pertinent History Genitourinary: No Pertinent History Musculoskeletal: No Pertinent History Female Surgical History: Dilation & Curettage, Tubal Ligation Other Surgical History: RECENT CARPAL TUNNEL, CUBITAL TUNNEL, AND ACF OF C6-6 - Social History Smoking Status: Current every day smoker How long have you smoked: 30 yr Exposure to second hand smoke: Yes Drug Use: none Patient Lives Alone: No <JENNIFER TOURE - Last Filed: 11/20/21 08:04> - Physical Exam General Appearance: no apparent distress, alert, anxiety, obese Eye Exam: PERRL/EOMI, eyes nml inspection Ears, Nose, Throat Exam: normal ENT inspection, moist mucous membranes Neck Exam: normal inspection, non-tender, supple, full range of motion Respiratory Exam: normal breath sounds, lungs clear, airway intact, No chest tenderness, No respiratory distress Cardiovascular Exam: regular rate/rhythm, normal heart sounds, normal peripheral pulses Gastrointestinal/Abdomen Exam: soft, normal bowel sounds, tenderness (Epigastrium and right upper quadrant), guarding Pelvic Exam: not done Rectal Exam: not done Back Exam: normal inspection, normal range of motion, No CVA tenderness, No vertebral tenderness Extremity Exam: normal inspection, normal range of motion, pelvis stable Neurologic Exam: alert, oriented x 3, cooperative, paint brush maker II-XII nml as tested, normal mood/affect, nml cerebellar function, nml station & gait, sensation nml Skin Exam: normal color, warm, dry Lymphatic Exam: No adenopathy SpO2 Interpretation: normal O2 Delivery: Room Air <FLEX VILLASENOR - Last Filed: 11/20/21 10:51> - Nursing Vital Signs Nursing Vital Signs: Initial Vital Signs Temperature 97.5 F 11/20/21 08:05 Pulse Rate 70 11/20/21 08:05 Respiratory Rate 18 11/20/21 08:05 Blood Pressure 174/87 11/20/21 08:05 O2 Sat by Pulse Oximetry 97 11/20/21 08:05 Pain Scale Pain Intensity 10 - Course Nursing assessment & vital signs reviewed: Yes EKG Interpreted by Me: RATE (70), Sinus Rhythm, NORMAL AXIS, NORMAL INTERVALS, NORMAL QRS, NORMAL ST-T, Other <FLEX VILLASENOR - Last Filed: 11/20/21 10:51> Ordered Tests: Active Orders 24 hr Category Date Time Status IV Insertion STAT Care 11/20/21 08:19 Active ABDOMEN AND PELVIS W/0 CONTRAS [CT] Stat Exams 11/20/21 08:19 Completed AMYLASE Stat Lab 11/20/21 08:00 Completed CBC W DIFF Stat Lab 11/20/21 08:00 Completed CMP Stat Lab 11/20/21 08:00 Completed CULTURE,URINE Stat Lab 11/20/21 08:21 Received LIPASE Stat Lab 11/20/21 08:00 Completed Lactic Acid Stat Lab 11/20/21 08:19 Completed TROPONIN Q3H Lab 11/20/21 08:00 Completed TROPONIN Q3H Lab 11/20/21 11:30 Ordered TROPONIN Q3H Lab 11/20/21 14:30 Ordered TROPONIN Q3H Lab 11/20/21 17:30 Ordered TROPONIN Q3H Lab 11/20/21 20:30 Ordered UA W/RFX UR CULTURE Stat Lab 11/20/21 08:21 Completed Medication Summary Discontinued Medications Generic Name Dose Route Start Last Admin Trade Name Musa PRN Reason Stop Dose Admin Sodium Chloride 1,000 mls @ 999 mls/hr 11/20/21 08:19 11/20/21 09:42 Sodium Chloride 0.9% 1000 Ml IV 11/20/21 09:19 Infused .Q1H1M STA Infusion Promethazine HCl 12.5 mg/ 100.5 mls @ 201 mls/hr 11/20/21 08:20 11/20/21 08:30 Sodium Chloride IV 11/20/21 08:49 201 mls/hr STAT ONE Administration Sodium Chloride Confirm 11/20/21 08:23 Sodium Chloride 0.9% 1000 Ml Administered 11/20/21 08:24 Dose 1,000 mls @ ud .ROUTE .STK-MED ONE Morphine Sulfate 4 mg 11/20/21 08:19 11/20/21 08:26 Morphine Sulfate 4 Mg/Ml Injection IV 11/20/21 08:20 4 mg STAT ONE Administration Morphine Sulfate Confirm 11/20/21 08:23 Morphine Sulfate 4 Mg/Ml Injection Administered 11/20/21 08:24 Dose 4 mg .ROUTE .STK-MED ONE Morphine Sulfate 4 mg 11/20/21 10:26 11/20/21 10:32 Morphine Sulfate 4 Mg/Ml Injection IV 11/20/21 10:27 4 mg STAT ONE Administration Morphine Sulfate Confirm 11/20/21 10:31 Morphine Sulfate 4 Mg/Ml Injection Administered 11/20/21 10:32 Dose 4 mg .ROUTE .STK-MED ONE Lab/Rad Data: Laboratory Result Diagrams 11/20/21 08:00 11/20/21 08:00 Laboratory Results 11/20/21 11/20/21 11/20/21 Range/Units 08:21 08:19 08:00 WBC (4.0-10.5) K/mm3 RBC (4.1-5.4) M/mm3 Hgb (12.0-16.0) gm/dl Hct (35-47) % MCV (78-100) fl MCH (26-32) pg MCHC (32-36) g/dl RDW (11.5-14.0) % Plt Count (150-450) K/mm3 MPV (7.5-11.0) fl Gran % (36.0-66.0) % Eos # (Auto) (0-0.5) Absolute Lymphs (auto) (1.0-4.6) Absolute Monos (auto) (0.0-1.3) Lymphocytes % (24.0-44.0) % Monocytes % (0.0-12.0) % Eosinophils % (0.00-5.0) % Basophils % (0.0-0.4) % Absolute Granulocytes (1.4-6.9) Basophils # (0-0.4) Sodium (137-145) mmol/L Potassium (3.5-5.1) mmol/L Chloride (98-107) mmol/L Carbon Dioxide (22-30) mmol/L Anion Gap (5-15) MEQ/L BUN (7-17) mg/dL Creatinine (0.52-1.04) mg/dL Estimated GFR ML/MIN Glucose (74-106) mg/dL Lactic Acid 1.5 (0.4-2.0) Calcium (8.4-10.2) mg/dL Total Bilirubin (0.2-1.3) mg/dL AST (14-36) U/L ALT (0-35) U/L Alkaline Phosphatase (38-126) U/L Troponin I < 0.012 (0.000-0.034) ng/mL Serum Total Protein (6.3-8.2) g/dL Albumin (3.5-5.0) g/dL Amylase (30-110) U/L Lipase (23-300) U/L Urine Color YELLOW (YELLOW) Urine Appearance CLOUDY (CLEAR) Urine pH 5.0 (5-6) Ur Specific [place] 1.018 (1.005-1.025) Urine Protein 30 (Negative) Urine Ketones NEGATIVE (NEGATIVE) Urine Blood LARGE (0-5) Danny/ul Urine Nitrite NEGATIVE (NEGATIVE) Urine Bilirubin NEGATIVE (NEGATIVE) Urine Urobilinogen NEGATIVE (0-1) mg/dL Ur Leukocyte Esterase NEGATIVE (NEGATIVE) Urine WBC (Auto) 6-10 (0-5) /HPF Urine RBC (Auto) >101 (0-2) /HPF U Epithel Cells (Auto) NONE (FEW) /HPF Urine Bacteria (Auto) FEW (NEGATIVE) /HPF Urine Mucus (Auto) SLIGHT (NEGATIVE) /HPF Urine Culture Reflexed YES (NO) Urine Glucose NEGATIVE (NEGATIVE) mg/dL 11/20/21 11/20/21 Range/Units 08:00 08:00 WBC 7.9 (4.0-10.5) K/mm3 RBC 5.15 (4.1-5.4) M/mm3 Hgb 15.3 (12.0-16.0) gm/dl Hct 46.6 (35-47) % MCV 90.5 (78-100) fl MCH 29.7 (26-32) pg MCHC 32.8 (32-36) g/dl RDW 12.8 (11.5-14.0) % Plt Count 270 (150-450) K/mm3 MPV 11.0 (7.5-11.0) fl Gran % 67.5 H (36.0-66.0) % Eos # (Auto) 0.10 (0-0.5) Absolute Lymphs (auto) 1.86 (1.0-4.6) Absolute Monos (auto) 0.58 (0.0-1.3) Lymphocytes % 23.5 L (24.0-44.0) % Monocytes % 7.3 (0.0-12.0) % Eosinophils % 1.3 (0.00-5.0) % Basophils % 0.4 (0.0-0.4) % Absolute Granulocytes 5.33 (1.4-6.9) Basophils # 0.03 (0-0.4) Sodium 137 (137-145) mmol/L Potassium 4.4 (3.5-5.1) mmol/L Chloride 98 (98-107) mmol/L Carbon Dioxide 27 (22-30) mmol/L Anion Gap 15.1 H (5-15) MEQ/L BUN 18 H (7-17) mg/dL Creatinine 0.92 (0.52-1.04) mg/dL Estimated GFR > 60.0 ML/MIN Glucose 108 H (74-106) mg/dL Lactic Acid (0.4-2.0) Calcium 9.4 (8.4-10.2) mg/dL Total Bilirubin 0.60 (0.2-1.3) mg/dL AST 22 (14-36) U/L ALT 18 (0-35) U/L Alkaline Phosphatase 82 (38-126) U/L Troponin I (0.000-0.034) ng/mL Serum Total Protein 7.3 (6.3-8.2) g/dL Albumin 4.5 (3.5-5.0) g/dL Amylase 54 (30-110) U/L Lipase 59 (23-300) U/L Urine Color (YELLOW) Urine Appearance (CLEAR) Urine pH (5-6) Ur Specific [place] (1.005-1.025) Urine Protein (Negative) Urine Ketones (NEGATIVE) Urine Blood (0-5) Danny/ul Urine Nitrite (NEGATIVE) Urine Bilirubin (NEGATIVE) Urine Urobilinogen (0-1) mg/dL Ur Leukocyte Esterase (NEGATIVE) Urine WBC (Auto) (0-5) /HPF Urine RBC (Auto) (0-2) /HPF U Epithel Cells (Auto) (FEW) /HPF Urine Bacteria (Auto) (NEGATIVE) /HPF Urine Mucus (Auto) (NEGATIVE) /HPF Urine Culture Reflexed (NO) Urine Glucose (NEGATIVE) mg/dL - Progress Progress: improved, pain not gone completely, re-examined Counseled pt/family regarding: lab results, diagnosis, need for follow-up, rad results <FLEX VILLASENOR - Last Filed: 11/20/21 10:51> - Progress Progress Note: 11/20/21 10:23 CAT scan of the abdomen pelvis without contrast shows with enlarged gallbladder with possible gallstones. No evidence of any acute cholecystitis. No acute intra-abdominal or intrapelvic abnormalities. (FLEX VILLASENOR) <JENNIFER TOURE - Last Filed: 11/20/21 08:04> - Departure Departure Disposition: Home Critical Care Time: No <FLEX VILLASENOR - Last Filed: 11/20/21 10:51> - Departure Clinical Impression: Abdominal pain, Cholelithiases Condition: Stable Referrals: OZZY GASPAR MD [Primary Care Provider] - Follow up/PCP as directed Instructions: Acute Abdomen (Belly Pain), Adult (DC) Additional Instructions: Drink plenty of fluids. Avoid fatty greasy spicy foods. Follow-up with your primary care physician for further management. Use your own hydrocodone tablets as prescribed and add the Phenergan tablets I wrote for as prescribed. Prescriptions: Promethazine HCl 25 mg [Phenergan 25 mg] 25 mg PO Q8H PRN PRN #10 tablet PRN Reason: Moderate To Severe Pain
[2021-11-20] MEDS ORDERED: MORPHINE SULFATE 4 MG INJ IV ONE ×2 (08:19→10:26)
[2021-11-20] MEDS ORDERED: Sodium Chloride 0.9% 1000 ML 1,000 ML IV STA (08:19)
[2021-11-20] MEDS ORDERED: Phenergan 25 MG INJ*** 12.5 MG in Sodium Chloride 0.9% 100 ML BAG 100 ML IV ONE (08:20)
[2021-11-20] MEDS ORDERED: Sodium Chloride 0.9% 1000 ML 1,000 ML ONE (08:23)
[2021-11-20] MEDS ORDERED: MORPHINE SULFATE 4 MG INJ ONE ×2 (08:23→10:31)
[2021-11-20 08:50] LABS: Absolute Neutrophil Ct (ANC) 5.33 (1.4-6.9); Basophil (Absolute #) 0.03 (0-0.4); Eosinophil % 1.3 % (0.00-5.0); Hematocrit 46.6 % (35-47); Hemoglobin 15.3 gm/dl (12.0-16.0); Lymphocyte (Absolute #) 1.86 (1.0-4.6); Lymphocytes % 23.5 % (24.0-44.0); Mean Cell Volume 90.5 fl (78-100); Mean Corpuscular Hemoglobin 29.7 pg (26-32); Mean Corpuscular Hgb Concent. 32.8 g/dl (32-36); Monocyte (Absolute #) 0.58 (0.0-1.3); Monocytes % 7.3 % (0.0-12.0); Neutrophil % 67.5 % (36.0-66.0); Platelet Count 270 K/mm3 (150-450); Red Blood Count 5.15 M/mm3 (4.1-5.4); Red Cell Distribution Width 12.8 % (11.5-14.0); White Blood Count 7.9 K/mm3 (4.0-10.5)
[2021-11-20 09:04] LABS: Appearance CLOUDY (CLEAR); Bacteria FEW /HPF (NEGATIVE); Bilirubin NEGATIVE (NEGATIVE); Blood LARGE Ery/ul (0-5); Glucose NEGATIVE (NEGATIVE); Ketones NEGATIVE (NEGATIVE); Leukocyte Esterase NEGATIVE (NEGATIVE); Mucus SLIGHT /HPF (NEGATIVE); Nitrite NEGATIVE (NEGATIVE); Protein,Urine Dip 30 (Negative); RBC >101 /HPF (0-2); Specific Gravity 1.018 (1.005-1.025); Urobilinogen NEGATIVE mg/dL (0-1)
[2021-11-20 09:06] LABS: ALBUMIN 4.5 g/dL (3.5-5.0); ALKALINE PHOSPHATASE 82 U/L (38-126); AMYLASE 54 U/L (30-110); ANION GAP 15.1 MEQ/L (5-15); BLOOD UREA NITROGEN 18 mg/dL (7-17); CHLORIDE 98 mmol/L (98-107); Calcium 9.4 mg/dL (8.4-10.2); Carbon Dioxide 27 mmol/L (22-30); Creatinine 1 0.92 mg/dL (0.52-1.04); EST GLOMERULAR FILTRATION RATE > 60.0 ML/MIN; Glucose 108 mg/dL (74-106); LIPASE 59 U/L (23-300); Potassium 4.4 mmol/L (3.5-5.1); SGOT/AST 22 U/L (14-36); SGPT/ALT 18 U/L (0-35); SODIUM 137 mmol/L (137-145); Total Protein 7.3 g/dL (6.3-8.2)
--- NOTE | 2021-11-20 10:11 | XRAY ---
Exam: CT of the abdomen and pelvis without IV contrast from 11/20/2021. CTDI: 21.66 mGy Comparison: CT of the abdomen and pelvis without IV contrast from 02/03/2016. Indication: 65-year-old female with epigastric and right upper quadrant abdominal pain. Patient has a history of prior tubal ligation. Technique: Non-IV contrast axial images were obtained through the abdomen and pelvis. Reconstructed coronal and sagittal images were created and reviewed. Findings: The lung bases reveal minimal atelectasis/scarring within the posterior lung sulci representing no change. The heart size is not enlarged. There are at least a couple pills/capsule densities within the stomach lumen with concomitant gastric secretions. The liver appears of unremarkable size and reveals a uniform attenuation without mass or intrahepatic biliary duct distention. A tiny calcified granuloma is seen within the posterior margin of the inferior aspect of the right hepatic lobe on axial image #34. The gallbladder appears mildly enlarged measuring 4.6 cm in greatest width on axial image #35. On coronal image #56 and sagittal image #63, there is a suggestion of minimal high attenuation density at the inferior margin of the gallbladder lumen which may represent subtle gallstones. No extrahepatic biliary duct distention is seen. The spleen appears at the upper limits of normal measuring up to 12.5 cm in greatest transverse dimension on axial image #16. Some small calcified granulomas are seen within the spleen. No splenic mass is identified. The pancreas appears normal without mass, pancreatic duct distention, or inflammatory changes. The adrenal glands appear of normal size and configuration. The kidneys appear of unremarkable size and shape. No gross renal mass, renal calculi, or hydronephrosis is seen. Mild atherosclerotic vascular calcification is seen within the distal abdominal aorta. No abdominal aortic aneurysm or abnormal retroperitoneal lymphadenopathy is seen. I see no free intraperitoneal air. No bowel containing ventral hernia is seen. I see no evidence of bowel obstruction. The appendix is identified and appears unremarkable. Mild scattered diverticulosis is seen throughout the descending colon and sigmoid colon. There is no evidence of diverticulitis. Some scattered stool is seen within the right hemicolon. The uterus is anteflexed and tilted slightly toward the right. There appears to be a 5 mm calcification within the posterior/inferior aspect of the right ovary representing no change from 02/03/2016. Otherwise, the ovaries appear unremarkable. The ureters appear of normal diameter and reveal no ureterolith. The urinary bladder appears unremarkable. No free intraperitoneal fluid is seen. No other pelvic mass or abnormally enlarged pelvic lymph nodes are seen. The femoral regions are remarkable for some small lymph nodes. The skeleton reveals no acute fracture or aggressive bone lesion. Moderate multilevel degenerative disc disease is seen at L2-L3 through L5-S1 representing no significant change. I also see mild degenerative disc disease of T7-T8 through T9-T10. The lower thoracic degenerative changes have progressed as compared to 02/03/2016. Impression: 1. There appears to be mild enlargement of the gallbladder lumen measuring 4.6 cm in greatest transverse diameter. In addition, the coronal images and sagittal images reveal some subtle calcification(s) adjacent to the inferior margin of the gallbladder lumen which may reflect small gallstones. No definite gallbladder wall thickening or biliary duct distention is seen. 2. Scattered diverticulosis is seen throughout the descending colon and sigmoid colon without evidence of acute diverticulitis. 3. Unremarkable appearance of the appendix. There is no evidence of bowel obstruction. 4. No other acute process is seen within the abdomen or pelvis. 5. Degenerative changes are seen within the lower thoracolumbar spine, as discussed above.
[2021-11-20 11:03] VITALS: BP 157/79; PULSE 81; O2SAT 95
== END 2021-11-20 11:03 | disposition home or self-care (01) ==
LOC: ED 07:53
DX: K80.20 Calculus of gallbladder without cholecystitis without obstruction (principal); R10.13 Epigastric pain; R10.11 Right upper quadrant pain; R11.0 Nausea; K44.9 Diaphragmatic hernia without obstruction or gangrene; Z72.0 Tobacco use; Z79.891 Long term (current) use of opiate analgesic; Z79.899 Other long term (current) drug therapy
CPT/HCPCS: 36000; 36415; 74176; 80053; 81001; 82150; 83605; 83690; 84484; 85025; 87086; 96360; 96374; 96375; 99284; J2270; J2550

== ENCOUNTER 2021-12-24 09:55 | Day surgery (SDC) | payer OTHER ==
--- NOTE | 2021-12-17 09:28 | HP ---
DATE OF SURGERY: 12/24/2021 HISTORY OF PRESENT ILLNESS: The patient is a 65-year-old female who presents with complaints of cholelithiasis. She states that all foods are causing pain and nausea. She does have some diarrhea. She states that she is unable to tolerate anything at this point. It appears she had an ultrasound with some cholelithiasis. PAST MEDICAL HISTORY: Bronchitis, fibromyalgia, diabetes, anxiety, depression. PAST SURGICAL HISTORY: Tonsillectomy. Tubal. D&C. ALLERGIES: SULFA. MEDICATIONS: Friona, amitriptyline, Myrbetriq, trazodone, citalopram, Singulair, Zofran, Ozempic. FAMILY HISTORY: Heart disease, cancer, diabetes, hypertension. SOCIAL HISTORY: Smokes one-fourth of a pack of cigarettes a day. No alcohol. REVIEW OF SYSTEMS: CONSTITUTIONAL: Denies fever or chills. CHEST: Denies shortness of breath. CVS: Denies chest pain. ABDOMEN: Reports abdominal pain, nausea, vomiting. Denies diarrhea, constipation or rectal bleeding. PHYSICAL EXAMINATION: GENERAL: No acute distress. CHEST: Nonlabored. No shortness of breath. CVS: Regular rate and rhythm. ABDOMEN: Soft, tender in right upper quadrant. IMPRESSION: Symptomatic cholelithiasis. PLAN: Laparoscopic cholecystectomy with Dr. Jona Floyd. As dictated by Jyoti Marin NP.
[~2021-12-24 09:55] MED LIST: Lactated Ringers 1,000 ML IV ONE; Sensorcaine 0.25% 10 ML ONE
[2021-12-24] MEDS ORDERED: Lactated Ringers 1,000 ML IV ONE ×2 (11:48→13:34)
[2021-12-24] MEDS ORDERED: MEFOXIN 2 GM PREMIX** 2 GM/50 ML ML IV ONE (11:48)
[2021-12-24] MEDS ORDERED: MEFOXIN 2 GM PREMIX** 2 GM/50 ML ML IV SCH (12:00)
[2021-12-24] MEDS ORDERED: Lactated Ringers 1,000 ML IV SCH (12:00)
[2021-12-24] MEDS ORDERED: Xylocaine-Mpf 2% 5 Ml Vial ONE (12:11)
[2021-12-24] MEDS ORDERED: Zemuron 100 MG/10 ML ONE (12:11)
[2021-12-24] MEDS ORDERED: BRIDION 200MG/2ML IV ONE (12:11)
[2021-12-24] MEDS ORDERED: Decadron 4 MG INJ ONE (12:11)
[2021-12-24] MEDS ORDERED: DIPRIVAN 200 MG/20 ML IV ONE (12:11)
[2021-12-24] MEDS ORDERED: SUBLIMAZE 100 MCG/2 ML ONE ×2 (12:11→12:12)
[2021-12-24] MEDS ORDERED: TORAdol 30 mg Injection ONE (12:11)
[2021-12-24] MEDS ORDERED: Zofran 4 MG/2 ML VIAL ONE (12:11)
[2021-12-24 15:15] VITALS: BP 150/58; PULSE 75; O2SAT 92
--- NOTE | 2021-12-25 09:20 | OP ---
SURGERY DATE: 12/24/2021 SURGERY TIME: 1215 PREOPERATIVE DIAGNOSIS: 1. SYMPTOMATIC CHOLELITHIASIS. POSTOPERATIVE DIAGNOSIS: 1. SYMPTOMATIC CHOLELITHIASIS. PROCEDURE: 1. Laparoscopic cholecystectomy. SURGEON: Jona Floyd M.D. ANESTHESIA: General endotracheal tube. COMPLICATIONS: None. CONDITION: Stable. INDICATION: Patient with upper abdominal pain. US positive. Was seen and examined. Procedure discussed in detail. Wished to proceed. OPERATIVE PROCEDURE: Taken to surgery. General anesthetic. Routine prep and drape. Veress needle inserted. Opened to a pressure of 1. Insufflated to a pressure of 14. Four 5's placed. Good visualization. Cystic duct defined. Cystic artery defined. Both structures triply Ligaclipped and transected. Clips totally cross wall approximated. Gallbladder rolled out of gallbladder fossa. Epigastric hole was widened for deliverance. It was delivered. Hole closure device and 2 sutures of 0 Vicryl. Field was dry. CO2 was exsufflated. Skin closed with 4-0 Vicryl and Steri-strips. Patient tolerated the procedure satisfactory.
== END 2021-12-24 15:35 | disposition home or self-care (01) ==
LOC: SDC 09:55
PROVIDERS: ATTEND Surgery
DX: K80.20 Calculus of gallbladder without cholecystitis without obstruction (principal)
CPT/HCPCS: J0694; J1100; J1885; J2405; J2704; J3010

== ENCOUNTER 2022-08-05 06:20 | Emergency (ER) | payer OTHER ==
--- NOTE | 2022-08-05 06:47 | ERPHSYRPT ---
- History of Present Illness Source: patient Exam Limitations: no limitations Patient Subjective Stated Complaint: rt knee pain and nausea Triage Nursing Assessment: pt ambulated back to ER limping, alert and oriented x4. Pt c/o rt knee pain since yesterday evening, but has this pain on occasion. However, this pain has not let up and is not getting any relief from hydrocodone. No obvious edema or brusing noted in comparison to the other knee. Pt is also having some nausea but thinks it may be due to the pain. Pt has a temp of 100.4. Timing/Duration: yesterday Severity: mild (To moderate) Associated Symptoms: nausea, fever, No vomiting, No abdominal pain, No shortness of breath, No cough, No chest pain Hx Tetanus, Diphtheria Vaccination/Date Given: Yes Hx Influenza Vaccination/Date Given: Yes Hx Pneumococcal Vaccination/Date Given: No Immunizations Up to Date: Yes - History of Present Illness Time Seen by Provider: 08/05/22 06:41 Physician History: This is a obese 66-year-old female patient of Dr. Gaspar who has a history of anxiety, fibromyalgia, degenerative disc disease chronic knee pain bilaterally and known meniscus issue with the right knee and presents with sudden onset of right anterior knee pain that worsened throughout the evening. Patient was up and ambulating during her work. She occasionally goes to the [facility] orthopedic clinic for injections in her right knee. She did not suffer any traumatic injury or fall. Patient was found to have a fever of 100.7F on entrance into the emergency department. She does not have new cough. She denies chest pain. She denies shortness of breath. She has no abdominal pain. She is had no vomiting or diarrhea but she has been nauseated. (FLEX VILLASENOR) Allergies/Adverse Reactions: Sulfa (Sulfonamide Antibiotics) Allergy (Unknown, Verified 08/05/22 06:39) pt unsure of reaction, it was when she was a baby. Home Medications: Citalopram Hydrobromide [Celexa] 40 mg PO DAILY 12/09/16 [History] Hydrocodone/Acetaminophen [[place] 10-325 Tablet] 10 mg PO TID PRN PRN 12/09/16 [History] Amitriptyline HCl 10 mg PO HS 01/24/19 [History] Mirabegron [Myrbetriq] 50 mg PO DAILY 01/24/19 [History] Montelukast Sodium 10 mg [Singulair 10 MG] 10 mg PO DAILY 01/24/19 [History] Trazodone HCl [Desyrel] 100 mg PO HS 01/24/19 [History] Lysine HCl [l-Lysine] 1,000 mg PO DAILY 12/23/21 [History] Travel Risk - International Travel Have you traveled outside of the country in past 3 weeks: No - Coronavirus Screening Are you exhibiting any of the following symptoms?: Yes Symptoms: Fever, Headaches/Body Aches/Fatigue Close contact with a COVID-19 positive Pt in past 14-21 Days: No - Vaccine Status Have you recieved a Covid-19 vaccination: Yes Tax Assessor: WUT - Vaccination Dates Date of 2cond Vaccination (if applicable): . - Review of Systems Constitutional: Fever Eyes: No Symptoms Ears, Nose, & Throat: No Symptoms Respiratory: No Symptoms Cardiac: No Symptoms Abdominal/Gastrointestinal: No Symptoms Genitourinary Symptoms: No Symptoms Musculoskeletal: Joint Pain (Right knee) Skin: No Symptoms Neurological: No Symptoms Psychological: No Symptoms Endocrine: No Symptoms Hematologic/Lymphatic: No Symptoms Immunological/Allergic: No Symptoms All Other Systems: Reviewed and Negative - Past Medical History Pertinent Past Medical History: Yes Neurological History: Migraines ENT History: No Pertinent History Cardiac History: No Pertinent History Respiratory History: COPD, Sleep Apnea Endocrine Medical History: No Pertinent History Musculoskeletal History: Fibromyalgia GI Medical History: Gallbladder Disease, Hernia, Other History: No Pertinent History Psycho-Social History: Anxiety, Depression Female Reproductive Disorders: No Pertinent History Other Medical History: IBS, UTI'S NONE RECENT. C-SPINE FUSION 2016. REPORTS SHE HAD ISSUE W/ LAST PAP SMEAR ON 01/14/22 IN WHICH SPECULUM WAS HARD TO REMOVE; LIKELY D/T CYSTOCELE/PROLAPSE. BEGAN MENOAPUSE ~ 15 YEARS AGO AND IS POST-MENOPAUSAL CURRENTLY. PT. HAS HX ANXIETY, DEPRESSION - Past Surgical History Past Surgical History: Yes Neuro Surgical History: No Pertinent History Cardiac: No Pertinent History Respiratory: No Pertinent History Gastrointestinal: Cholecystectomy Genitourinary: No Pertinent History Musculoskeletal: No Pertinent History Female Surgical History: Dilation & Curettage, Tubal Ligation Other Surgical History: RECENT CARPAL TUNNEL, CUBITAL TUNNEL, AND ACF OF C6-7 - Social History Smoking Status: Current every day smoker How long have you smoked: 52 years Exposure to second hand smoke: No Drug Use: none Patient Lives Alone: Yes - Physical Exam General Appearance: no apparent distress, alert, anxiety, obese Eye Exam: PERRL/EOMI, eyes nml inspection Ears, Nose, Throat Exam: normal ENT inspection, moist mucous membranes Neck Exam: normal inspection, non-tender, supple, full range of motion Respiratory Exam: normal breath sounds, lungs clear, airway intact, No chest tenderness, No respiratory distress Cardiovascular Exam: regular rate/rhythm, normal heart sounds, normal peripheral pulses Gastrointestinal/Abdomen Exam: soft, normal bowel sounds, No tenderness Pelvic Exam: not done Rectal Exam: not done Back Exam: normal inspection, normal range of motion, No CVA tenderness, No vertebral tenderness Extremity Exam: normal inspection, normal range of motion, tenderness (Right knee with flexion and extension), No deformities Neurologic Exam: alert, oriented x 3, cooperative, 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 as tested, n ormal mood/affect, nml cerebellar function, nml station & gait, sensation nml Skin Exam: normal color, warm, dry Lymphatic Exam: No adenopathy SpO2 Interpretation: normal SpO2: 94 O2 Delivery: Room Air - Nursing Vital Signs Nursing Vital Signs: Initial Vital Signs Temperature 100.4 F 08/05/22 06:24 Pulse Rate 90 08/05/22 06:24 Respiratory Rate 22 08/05/22 06:24 Blood Pressure 128/62 08/05/22 06:24 O2 Sat by Pulse Oximetry 94 L 08/05/22 06:24 Pain Scale Pain Intensity 10 - Course Nursing assessment & vital signs reviewed: Yes Ordered Tests: Active Orders 24 hr Category Date Time Status LOWER EXTREMITY WO CONTRAST [CT] Stat Exams 08/05/22 06:49 Completed UA W/RFX CULTURE Stat Lab 08/05/22 06:54 Completed Medication Summary Discontinued Medications Generic Name Dose Route Start Last Admin Trade Name Freq PRN Reason Stop Dose Admin Morphine Sulfate 4 mg 08/05/22 06:50 08/05/22 06:57 Morphine Sulfate 4 Mg/Ml Injection IM 08/05/22 06:51 4 mg STAT ONE Administration Morphine Sulfate Confirm 08/05/22 06:56 Morphine Sulfate 4 Mg/Ml Injection Administered 08/05/22 06:57 Dose 4 mg .ROUTE .STK-MED ONE Prochlorperazine Edisylate 5 mg 08/05/22 06:51 08/05/22 06:58 Prochlorperazine Edisylate 10 Mg/2 Ml Vial IM 08/05/22 06:52 5 mg STAT ONE Administration Prochlorperazine Edisylate Confirm 08/05/22 06:56 Prochlorperazine Edisylate 10 Mg/2 Ml Vial Administered 08/05/22 06:57 Dose 10 mg .ROUTE .STK-MED ONE Lab/Rad Data: Laboratory Results 08/05/22 08/05/22 Range/Units 07:00 06:54 Urinalys Dipstick Clnc MAIN LAB Urine Color YELLOW (YELLOW) Urine Appearance CLEAR (CLEAR) Urine pH 5.5 (5-6) Ur Specific [place] >=1.030 A (1.005-1.025) POC Urine Protein Conf NEGATIVE (Negative) Urine Ketones NEGATIVE (NEGATIVE) Urine Nitrite NEGATIVE (NEGATIVE) Urine Bilirubin NEGATIVE (NEGATIVE) Urine Urobilinogen 0.2 (0-1) mg/dL Urine Leukocytes NEGATIVE (NEGATIVE) Urine WBC (Auto) NONE (0-5) /HPF Urine RBC (Auto) NONE (0-2) /HPF U Epithel Cells (Auto) NONE (FEW) /HPF Urine Bacteria (Auto) NONE (NEGATIVE) /HPF Urine RBC NEGATIVE (0-5) Danny/ul Ur Culture Indicated? NO Urine Glucose NEGATIVE (NEGATIVE) mg/dL Influenza Type A Ag NEGATIVE (NEGATIVE) Influenza Type B Ag NEGATIVE (NEGATIVE) RSV (PCR) NEGATIVE (Negative) SARS-CoV-2 (PCR) POSITIVE A (NEGATIVE) - Progress Progress: improved, pain not gone completely Counseled pt/family regarding: diagnosis, need for follow-up, rad results - Progress Progress Note: 08/05/22 06:48 Transfer of care of this patient to Dr. Dover at shift change. He will follow- up on the results of the testing and make final disposition. (FLEX VILLASENOR) 08/05/22 08:45 Patient is checked out to me at shift change from Dr. Villasenor with pending CT knee and lab work. Patient presented with worsening knee pain and does have history of arthritis with meniscal injuries in the past. She received symptomatic treatment and is feeling better on my evaluation. Patient was mildly febrile with clear lungs to auscultation during my evaluation and no difficulty breathing. Abdominal exam soft nontender. Patient has no UTI but does have positive COVID-19. No difficulty breathing or cough reported. No URI symptoms. Discussed with patient about symptomatic treatment and also option of Paxilovid in detail and went over risk and benefits but she does not want antiviral. Recommended continue with pain medications which she has at home to help with her knee and also with fever. Discussed signs symptoms of worsening needing return to ER which she seems understanding. I have offered her Albino wrap which she does not want. Patient would follow-up with orthopedics for intra- articular injections. (TAMY DOVER) - Departure Departure Disposition: Home Critical Care Time: No - Departure Clinical Impression: Right knee pain, Fever, COVID-19 virus detected Condition: Stable Referrals: OZZY GASPAR MD [Primary Care Provider] - Follow up/PCP as directed (1-2 days) Instructions: Knee Sprain (DC), COVID-19 (DC) Additional Instructions: Follow-up in [facility] orthopedic clinic for further evaluation management. Take [place]'s which you have at home for pain and take ibuprofen as needed. Return to ER for persistent high-grade fever, difficulty breathing, intractable nausea vomiting, generalized weakness etc.
[2022-08-05] MEDS ORDERED: MORPHINE SULFATE 4 MG INJ IM ONE (06:50)
[2022-08-05] MEDS ORDERED: Compazine 10 MG/2 ML IM ONE (06:51)
[2022-08-05] MEDS ORDERED: Compazine 10 MG/2 ML ONE (06:56)
[2022-08-05] MEDS ORDERED: MORPHINE SULFATE 4 MG INJ ONE (06:56)
[2022-08-05 07:09] LABS: Appearance CLEAR (CLEAR); Bilirubin NEGATIVE (NEGATIVE); Glucose NEGATIVE (NEGATIVE); Ketones NEGATIVE (NEGATIVE); Nitrite NEGATIVE (NEGATIVE); Ph 5.5 (5-6); RBC NEGATIVE Ery/ul (0-5); Specific Gravity >=1.030 (1.005-1.025)
[2022-08-05 07:10] LABS: Dipstick done @ ? MAIN LAB; Protein,Urine Dip NEGATIVE (Negative); Urobilinogen 0.2 mg/dL (0-1)
[2022-08-05 07:11] LABS: Urine Cultured Indicated? NO
[2022-08-05 07:41] LABS: INFLUENZA A NEGATIVE (NEGATIVE); INFLUENZA B NEGATIVE (NEGATIVE); RESPIRATORY SYNCTIAL VIRUS NEGATIVE (Negative)
[2022-08-05 08:05] LABS: SARS-CoV-2 Xpert Express POSITIVE (NEGATIVE)
--- NOTE | 2022-08-05 08:35 | XRAY ---
Indication: Pain and swelling. No known injury. Multiple contiguous axial images obtained through the right knee without contrast per sagittal and coronal reformatted images obtained. Comparison: None Osseous structures demineralized consistent with patient's age. Mild medial and lateral joint space narrowing/spurring. 6 mm medial condyle bone island. No acute fracture, dislocation, or suspicious bony lesions. Small nonspecific effusion. Remaining visualized noncontrasted soft tissues unremarkable. Impression: Osteopenia, mild degenerative changes, small nonspecific effusion, and tiny medial condyle bone island.
[2022-08-05 09:04] VITALS: O2SAT 95
[2022-08-05 10:11] VITALS: BP 130/75; PULSE 89
== END 2022-08-05 10:13 | disposition home or self-care (01) ==
LOC: ED 06:20
DX: M25.561 Pain in right knee (principal); U07.1 COVID-19; R50.9 Fever, unspecified; R11.0 Nausea; J44.9 Chronic obstructive pulmonary disease, unspecified; Z72.0 Tobacco use; Z79.899 Other long term (current) drug therapy
CPT/HCPCS: 0241U; 73700; 81015; 96372; 99284; J2270